=== PATIENT | female | born 1950 | race Caucasian/White ===

== ENCOUNTER → 2017-06-21 | Outpatient (CLI) | payer MEDICARE ==
--- NOTE | 2017-06-21 12:52 | WWHP ---
[facility] - HISTORY AND PHYSICAL DATE OF DICTATION: June 21, 2017 Please have a copy sent to Dr. Karan Godinez. CHIEF COMPLAINT: The patient is here for her routine gynecologic exam and mammogram. HPI: This is a 67-year-old G4, P3 with an LMP of 2001. The patient is without gynecologic complaints and denies any postmenopausal bleeding. 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 MEDICATIONS: None. ALLERGIES: No known drug allergies. PAST SURGICAL HISTORY: Tonsillectomy in 1954, colonoscopy in 05/2017. She was told to repeat this after 3 years. 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 SOCIAL HISTORY: She denies tobacco, alcohol, and drug use. She has been since 1972 and this is her second marriage. She is considered disabled. FAMILY HISTORY: Unchanged from the 12/03/2015 H and P. REVIEW OF SYSTEMS: She has lost 7 pounds over the last year. She denies respiratory cardiac or GI problems. She denies maltreatment or falling. : She denies any significant problems with urinary leakage. PHYSICAL EXAM: Blood pressure 124/84, height 5 feet 7 inches, weight 196 pounds. BMI 31. Temperature 97.9, pulse 62. This is a well-developed, well-nourished, white female, who is alert and oriented x3, in no acute distress. HEENT is within normal limits. NECK: Supple without mass or thyromegaly. Chest and LUNGS: Clear to auscultation. HEART: Regular rate and rhythm. Breasts are without mass or discharge. Axillary exam is negative for adenopathy. Back negative for CVA tenderness. ABDOMEN: Soft, nontender, without palpable masses. Pelvic exam: External genitalia reveals mild atrophy without lesions. Cervix and vagina reveals mild atrophy without lesions. There is no evidence of prolapse. The uterus is mid position, nongravid size and nontender. There are no palpable adnexal masses or tenderness. Rectovaginal exam is negative for mass or tenderness. Fecal occult blood testing was not performed since she just had her colonoscopy done last month. EXTREMITIES: Nontender. IMPRESSION: 67-year-old menopausal female with normal gynecologic exam. PLAN: 1. Pap smear was deferred since she had a normal one less than 2 years ago. 2. Self breast examination was discussed. 3. Screening mammogram will be done today. 4. Osteoporosis prevention was discussed. I have recommended bone density screening. She would like to do this next year. 5. She did not receive a flu shot. I have recommended that she get flu shots during the flu season. 6. She will return in 1 year end. TACO / SAEEDN: [id number] /
--- NOTE | 2017-06-22 09:21 | MM ---
Reason for exam: screening (asymptomatic). Last mammogram was performed 1 year and 6 months ago. History: Family history of breast cancer in maternal cousin at age 30. Physical Findings: A clinical breast exam by your physician is recommended on an annual basis and results should be correlated with mammographic findings. MG 3D Screening Mammo W/Cad Bilateral CC and MLO view(s) were taken. Prior study comparison: December 15, 2015, bilateral MG 3d screening mammo w/cad. March 22, 2007, bilateral screening mammogram w/CAD. There are scattered fibroglandular densities. No significant changes when compared with prior studies. ASSESSMENT: Benign, BI-RAD 2 RECOMMENDATION: Routine screening mammogram of both breasts in 1 year.
== END | disposition home or self-care (01) ==
LOC: WWCWWP 10:41
PROVIDERS: ATTEND Obstetrics & Gynecology
DX: Z12.31 Encounter for screening mammogram for malignant neoplasm of breast (principal)
CPT/HCPCS: 77063; 77067

== ENCOUNTER → 2018-10-18 | Outpatient (CLI) | payer MEDICARE ==
[2018-10-18 11:49] VITALS: BP 146/91; PULSE 54; RESP 16; TEMP 97.9; BMI 29.6
--- NOTE | 2018-10-18 12:33 | P.HPOB ---
History of Present Illness H&P Date: 10/18/18 Chief Complaint: The patient is here for her routine gynecologic exam and ma mmogram. This is a 68-year-old with an LMP of 2001. The patient is without gynecologic complaints and denies any postmenopausal bleeding. Review of Systems She has lost about 7 pounds over the last year. She denies respiratory, cardiac and G.I. problems. She denies maltreatment or problems with falling. : she denies any significant problems with urinary leakage, but occasionally has to get to the bathroom right away. Past Medical History Past Medical History: Hyperlipidemia Additional Past Medical History / Comment(s): Psoriatic arthritis, granuloma annulares (skin condition), and Behcet's disease. 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 History of Any Multi-Drug Resistant Organisms: None Reported Past Surgical History: Tonsillectomy Additional Past Surgical History / Comment(s): Colonoscopy in May 2017 (next after 3 yrs). Past Psychological History: No Psychological Hx Reported Smoking Status: Never smoker Past Alcohol Use History: None Reported Past Drug Use History: None Reported Additional History: She has been since 1972 and this was her 2nd marriage. She is considered disabled. She is infrequently sexually active following her 's diagnosis of prostate cancer. - Past Family History Father Family Medical History: Diabetes Mellitus Mother Family Medical History: Cancer, Myocardial Infarction ([place]) Additional Family Medical History / Comment(s): Unknown type of cancer. 2 cousins had breast cancer. Medications and Allergies Home Medications Medication Instructions Recorded Confirmed Type No Known Home Medications 10/18/18 10/18/18 History Allergies Allergy/AdvReac Type Severity Reaction Status Date / Time No Known Allergies Allergy Unverified 10/18/18 11:49 Exam Vital Signs Temp Pulse Resp BP Pulse Ox 10/18/18 11:41 97.9 F 54 L 16 146/91 98 Intake and Output 10/17/18 10/18/18 10/18/18 22:59 06:59 14:59 Other: Weight 85.729 kg Height 5'7", weight 189 pounds, BMI 29.6. This is a well-developed well-nourished white female who is alert and oriented times 3 in no acute distress. HEENT: Within normal limits. NECK: Supple without mass or thyromegaly. CHEST AND LUNGS: Clear to auscultation. HEART: Regular rate and rhythm. BREASTS: Are without mass or discharge. AXILLARY EXAM: Negative for adenopathy. BACK: Negative for CVA tenderness. ABDOMEN: Soft, nontender, without palpable masses. PELVIC EXAM: Normal external genitalia with mild to moderate atrophy. Cervix and vagina appear normal with mild to moderate atrophy. There is no unusual discharge. There is no evidence of prolapse. The uterus is midposition, nongravid size and nontender. There are no palpable adnexal masses or tenderness. RECTAL EXAM: rectovaginal exam is negative for mass or tenderness and is negative for occult blood. EXTREMITIES: Nontender. IMPRESSION: 1. 68 year old menopausal female with normal gynecologic exam. PLAN: 1. Pap smear was performed. 2. Self breast awareness was discussed with the patient. 3. Screening mammogram will be done today. 4. Osteoporosis prevention was discussed. I have stressed the importance of adequate calcium, vitamin D and regular exercise. Recommended amounts of calcium and vitamin D were also discussed. I have recommended bone density testing. She is declining this at this time. She states she will consider doing this next year. 5. She does not get flu shots. I have recommended that she consider getting a flu shot in the fall. 6.She was advised to return in one year for her annual well woman exam.
--- NOTE | 2018-10-19 09:44 | MM ---
Reason for exam: screening (asymptomatic). Last mammogram was performed 1 year and 4 months ago. History: Family history of breast cancer in maternal cousin at age 30. Physical Findings: A clinical breast exam by your physician is recommended on an annual basis and results should be correlated with mammographic findings. MG 3D Screening Mammo W/Cad Bilateral CC and MLO view(s) were taken. Prior study comparison: June 21, 2017, bilateral MG 3d screening mammo w/cad. December 15, 2015, bilateral MG 3d screening mammo w/cad. There are scattered fibroglandular densities. No significant changes when compared with prior studies. ASSESSMENT: Benign, BI-RAD 2 RECOMMENDATION: Routine screening mammogram of both breasts in 1 year.
== END | disposition home or self-care (01) ==
LOC: WWCWWP 11:03
PROVIDERS: ATTEND Obstetrics & Gynecology
DX: Z12.31 Encounter for screening mammogram for malignant neoplasm of breast (principal)
CPT/HCPCS: 77063; 77067

== ENCOUNTER → 2020-07-22 | Outpatient (CLI) | payer MEDICARE ==
[2020-07-22 11:33] VITALS: BP 142/82; PULSE 61; RESP 18; TEMP 98.3
--- NOTE | 2020-07-22 12:01 | P.HPOB ---
History of Present Illness H&P Date: 07/22/20 Chief Complaint: The patient is here for her routine gynecologic exam and ma mmogram. This is a 70-year-old 013 with an LMP of 2001. The patient is without gynecologic complaints. Review of Systems She has gained about 11 pounds over the past 2 years. She denies respiratory, cardiac and G.I. problems. She denies maltreatment. She has fallen on ice without any significant injury. : she denies any significant problems with urinary leakage. Past Medical History Past Medical History: Hyperlipidemia Additional Past Medical History / Comment(s): Psoriatic arthritis, granuloma annulares (skin condition), and Behcet's disease. 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 History of Any Multi-Drug Resistant Organisms: None Reported Past Surgical History: Tonsillectomy Additional Past Surgical History / Comment(s): Colonoscopy in May 2017 (next after 3 yrs). Past Psychological History: No Psychological Hx Reported Smoking Status: Never smoker Past Alcohol Use History: None Reported Past Drug Use History: None Reported Additional History: She has been since 1972 and this is her second marriage. She is considered disabled. She is not sexually active. - Past Family History Father Family Medical History: Diabetes Mellitus Mother Family Medical History: Cancer, Myocardial Infarction ([place]) Additional Family Medical History / Comment(s): Unknown type of cancer. 2 cousins had breast cancer. Medications and Allergies Home Medications Medication Instructions Recorded Confirmed Type No Known Home Medications 10/18/18 07/22/20 History Allergies Allergy/AdvReac Type Severity Reaction Status Date / Time No Known Allergies Allergy Unverified 07/22/20 11:21 Exam Vital Signs Temp Pulse Resp BP Pulse Ox 07/22/20 11:21 98.3 F 61 18 142/82 98 Intake and Output 07/21/20 07/22/20 07/22/20 22:59 06:59 14:59 Other: Weight 90.718 kg Height 5 feet 7 inches, weight 200 pounds, BMI 31.3. This is a well-developed well-nourished white female who is alert and oriented times 3 in no acute distress. HEENT: Within normal limits. NECK: Supple without mass or thyromegaly. CHEST AND LUNGS: Clear to auscultation. HEART: Regular rate and rhythm. BREASTS: Are without mass or discharge. AXILLARY EXAM: Negative for adenopathy. BACK: Negative for CVA tenderness. ABDOMEN: Soft, nontender, without palpable masses. PELVIC EXAM: Normal external genitalia with mild atrophy. Cervix and vagina appear normal with mild to moderate atrophy. There is no unusual discharge. There is no evidence of prolapse. The uterus is midposition, nongravid size and nontender. There are no palpable adnexal masses or tenderness. RECTAL EXAM: Rectovaginal exam is negative for mass or tenderness and is negative for occult blood. EXTREMITIES: Nontender. IMPRESSION: 1. 70-year-old menopausal female with normal gynecologic exam. PLAN: 1. Pap smear was deferred since she had a normal one on 10/18/2018. We will repeat Pap smear testing at her next well woman examination. If that one is negative, we will have 3 consecutive negative Pap smears and we will consider discontinuing them. 2. Self breast awareness was discussed with the patient. 3. Screening mammogram will be done today. 4. Osteoporosis prevention was discussed. I have stressed the importance of adequate calcium, vitamin D and regular exercise. Recommended amounts of calcium and vitamin D were also discussed. Bone density testing was recommended and this was declined by the patient. She will let me know if she changes her mind about this. 5. I believe she is coming due for a screening colonoscopy. She will follow-up with her PCP to confirm this and to see if they can help her to arrange for t his. 6. She is scheduled to get her Covid vaccination this week. 7. The patient was advised to return in 1-2 years for her well woman examination.
--- NOTE | 2020-07-23 10:21 | MM ---
Reason for exam: screening (asymptomatic). Last mammogram was performed 1 year and 9 months ago. History: Patient is postmenopausal. Family history of breast cancer in maternal cousin at age 30. Physical Findings: A clinical breast exam by your physician is recommended on an annual basis and results should be correlated with mammographic findings. MG 3D Screening Mammo W/Cad Bilateral CC and MLO view(s) were taken. Prior study comparison: October 18, 2018, bilateral MG 3d screening mammo w/cad. June 21, 2017, bilateral MG 3d screening mammo w/cad. There are scattered fibroglandular densities. There is no discrete abnormality. ASSESSMENT: Negative, BI-RAD 1 RECOMMENDATION: Routine screening mammogram of both breasts in 1 year.
== END | disposition home or self-care (01) ==
LOC: WWCWWP 11:01
PROVIDERS: ATTEND Obstetrics & Gynecology
DX: Z12.31 Encounter for screening mammogram for malignant neoplasm of breast (principal)
CPT/HCPCS: 77063; 77067

== ENCOUNTER → 2021-02-26 | Outpatient (CLI) | payer MEDICARE ==
--- NOTE | 2021-02-26 14:13 | XR ---
Left foot HISTORY: Left foot pain 3 views of the left foot Degenerative changes present at the first metatarsophalangeal joint. Bone mineralization, joint space s and alignment are otherwise maintained. There is no fracture or dislocation. There is a plantar alex caneal spur. Spurring is present at the intertarsal joints. IMPRESSION: Osteoarthritis.
--- NOTE | 2021-02-26 14:16 | XR ---
Cervical spine HISTORY: Neck pain 5 views of the cervical spine, no comparisons There is multilevel spondylosis. Anterolisthesis grade 1 C3-4, C4-5, there is a kyphosis centered at C5-6. Loss of disc height is present C5-6 and C6-7, C7-T1. Cervical vertebral bodies show preserved h eight and bone mineralization. Prevertebral soft tissues are normal. Facet arthropathy changes are pr esent. C4-5 shows some foraminal encroachment bilaterally, there is some foraminal encroachment at C6 -7 and C7-T1 bilaterally, C5-6 on the left. Suspect underlying thoracic scoliotic curvature present. IMPRESSION: Degenerative disc disease, facet arthropathy, multilevel foraminal encroachment.
--- NOTE | 2021-02-26 14:24 | XR ---
Left knee HISTORY: Left knee pain 4 views of left knee Marginal spurring is present tricompartmentally, joint space loss is present at the patellofemoral omar int, medial compartment. Alignment is maintained. Bone mineralization is reduced. There is no fractur e or dislocation. Suprapatellar increased attenuation may reflect a small joint effusion. Subchondral lucency may be present at the posterior patella. IMPRESSION: Osteoarthritis.
== END | disposition home or self-care (01) ==
LOC: RADXRMAIN 12:20
PROVIDERS: ATTEND Internal Medicine
DX: M19.072 Primary osteoarthritis, left ankle and foot (principal); M50.30 Other cervical disc degeneration, unspecified cervical region; M47.812 Spondylosis without myelopathy or radiculopathy, cervical region; M17.12 Unilateral primary osteoarthritis, left knee
CPT/HCPCS: 72050

== ENCOUNTER 2021-03-05 09:46 | Inpatient (IN) | payer MEDICARE ==
[2021-03-05] MEDS ORDERED: PANTOPRAZOLE 40 MG/10 ML VIAL IVP STA (10:24)
--- NOTE | 2021-03-05 10:49 | ED ---
Abdominal Pain HPI - General Chief Complaint: Abdominal Pain Stated Complaint: Nausea/Vomiting/Abd Pain Source: patient Mode of arrival: ambulatory Limitations: no limitations - History of Present Illness Initial Comments: 70-year-old female with past medical history of hyperlipidemia, psoriatic arthritis presents to the emergency department with supportive epigastric abdominal pain. States it's been present for the past 3 days and makes her feel nauseated with vomiting. She has been unable to hold down any food. He states her symptoms were more mild today she was able to eat half piece of toast. She denies hematemesis. No history of EGD. Reports a history of peptic ulcer disease however this was when she was much younger. She also reports to chronic belching no changes in her bowel or bladder habits currently. No vaginal bleeding or discharge. Was taking Tums at home for her symptoms and states that it was not improving. She was supposed to have an appointment with Dr. Nayak today. Presented to his office and when she told him that he didn't feel well he sent her into the emergency room for further evaluation. No history of abdominal surgeries. Patient does not drink alcohol. Denies chest pain or shortness of breath. No other alleviating, precipitating or modifying factors - Related Data Home Medications Medication Instructions Recorded Confirmed Ascorbic Acid [Vitamin C] 500 mg PO DAILY 03/05/21 03/05/21 Cholecalciferol [Vitamin D3 (25 25 mcg PO DAILY 03/05/21 03/05/21 Mcg = 1000 Iu)] Multivitamins, Thera [Multivitamin 1 tab PO DAILY 03/05/21 03/05/21 (formulary)] Allergies Allergy/AdvReac Type Severity Reaction Status Date / Time No Known Allergies Allergy Verified 03/05/21 11:43 Review of Systems ROS Statement: Those systems with pertinent positive or pertinent negative responses have been documented in the HPI. ROS Other: All systems not noted in ROS Statement are negative. Past Medical History Past Medical History: Hyperlipidemia Additional Past Medical History / Comment(s): Psoriatic arthritis, granuloma annulares (skin condition), and Behcet's disease. 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 History of Any Multi-Drug Resistant Organisms: None Reported Past Surgical History: Tonsillectomy Additional Past Surgical History / Comment(s): Colonoscopy in May 2017 (next after 3 yrs). Past Psychological History: No Psychological Hx Reported Smoking Status: Never smoker Past Alcohol Use History: None Reported Past Drug Use History: None Reported - Past Family History Father Family Medical History: Diabetes Mellitus Mother Family Medical History: Cancer, Myocardial Infarction ([place]) Additional Family Medical History / Comment(s): Unknown type of cancer. 2 cousins had breast cancer. General Exam Limitations: no limitations Course Vital Signs 03/05/21 03/05/21 09:55 12:33 Temperature 98.2 F Pulse Rate 98 90 Respiratory 18 16 Rate Blood Pressure 161/111 139/85 O2 Sat by Pulse 98 96 Oximetry - Reevaluation(s) Reevaluation #1: 03/05/21 12:[address] Ozuna about the patient Medical Decision Making - Medical Decision Making Upon arrival patient was placed into room 4. She is hooked up to continuous pulse ox and cardiac monitoring. 12-lead EKG was performed which does demonstrate some ST depression. Laboratory studies are conducted. Does demonstrate a white count of 13.5. Lactic acid 2.2. Troponin 0.588. Urinalysis demonstrates occasional bacteria. Covid negative. Abdominal ultrasound demonstrates possible hepatic steatosis or hepatocellular disease. Cholelithiasis, thickened wall. Patient is initiated on heparin. Called and spoke with Dr. Zafar who agreed to admit the patient. I spoke with Dr. Ozuna who presents emergency department and evaluates the patient. Echo was ordered. We will consult Dr. Kwong for possible cholecystitis. Patient remained in st able condition awaiting a bed - Lab Data Result diagrams: 03/05/21 10:34 03/05/21 10:34 Lab Results 03/05/21 03/05/21 03/05/21 Range/Units 10:34 10:34 10:34 WBC 13.5 H (3.8-10.6) k/uL RBC 5.86 H (3.80-5.40) m/uL Hgb 17.4 H (11.4-16.0) gm/dL Hct 53.2 H (34.0-46.0) % MCV 90.8 (80.0-100.0) fL MCH 29.7 (25.0-35.0) pg MCHC 32.7 (31.0-37.0) g/dL RDW 12.9 (11.5-15.5) % Plt Count 431 (150-450) k/uL MPV 7.2 Neutrophils % 78 % Lymphocytes % 13 % Monocytes % 7 % Eosinophils % 1 % Basophils % 0 % Neutrophils # 10.5 H (1.3-7.7) k/uL Lymphocytes # 1.7 (1.0-4.8) k/uL Monocytes # 1.0 (0-1.0) k/uL Eosinophils # 0.1 (0-0.7) k/uL Basophils # 0.0 (0-0.2) k/uL Sodium 136 L (137-145) mmol/L Potassium 4.3 (3.5-5.1) mmol/L Chloride 98 (98-107) mmol/L Carbon Dioxide 25 (22-30) mmol/L Anion Gap 13 mmol/L BUN 14 (7-17) mg/dL Creatinine 0.85 (0.52-1.04) mg/dL Est GFR (CKD-EPI)AfAm 81 (>60 ml/min/1.73 sqM) Est GFR (CKD-EPI)NonAf 70 (>60 ml/min/1.73 sqM) Glucose 121 H (74-99) mg/dL Lactic Ac Sepsis Rflx Plasma Lactic Acid Bryon (0.7-2.0) mmol/L Calcium 10.6 H (8.4-10.2) mg/dL Total Bilirubin 1.5 H (0.2-1.3) mg/dL AST 35 (14-36) U/L ALT 21 (4-34) U/L Alkaline Phosphatase 87 (38-126) U/L Troponin I (0.000-0.034) ng/mL Total Protein 7.9 (6.3-8.2) g/dL Albumin 4.6 (3.5-5.0) g/dL Lipase 67 (23-300) U/L Urine Color Light Yellow Urine Appearance Clear (Clear) Urine pH 5.5 (5.0-8.0) Ur Specific Angelica 1.004 (1.001-1.035) Urine Protein Trace H (Negative) Urine Glucose (UA) Negative (Negative) Urine Ketones Negative (Negative) Urine Blood Trace H (Negative) Urine Nitrite Negative (Negative) Urine Bilirubin Negative (Negative) Urine Urobilinogen <2.0 (<2.0) mg/dL Ur Leukocyte Esterase Negative (Negative) Urine RBC <1 (0-5) /hpf Urine WBC <1 (0-5) /hpf Ur Squamous Epith Cells 1 (0-4) /hpf Urine Bacteria Occasional H (None) /hpf Coronavirus (PCR) (Not Detectd) 03/05/21 03/05/21 03/05/21 Range/Units 10:34 10:34 11:41 WBC (3.8-10.6) k/uL RBC (3.80-5.40) m/uL Hgb (11.4-16.0) gm/dL Hct (34.0-46.0) % MCV (80.0-100.0) fL MCH (25.0-35.0) pg MCHC (31.0-37.0) g/dL RDW (11.5-15.5) % Plt Count (150-450) k/uL MPV Neutrophils % % Lymphocytes % % Monocytes % % Eosinophils % % Basophils % % Neutrophils # (1.3-7.7) k/uL Lymphocytes # (1.0-4.8) k/uL Monocytes # (0-1.0) k/uL Eosinophils # (0-0.7) k/uL Basophils # (0-0.2) k/uL Sodium (137-145) mmol/L Potassium (3.5-5.1) mmol/L Chloride (98-107) mmol/L Carbon Dioxide (22-30) mmol/L Anion Gap mmol/L BUN (7-17) mg/dL Creatinine (0.52-1.04) mg/dL Est GFR (CKD-EPI)AfAm (>60 ml/min/1.73 sqM) Est GFR (CKD-EPI)NonAf (>60 ml/min/1.73 sqM) Glucose (74-99) mg/dL Lactic Ac Sepsis Rflx Y Plasma Lactic Acid Bryon 2.2 H* (0.7-2.0) mmol/L Calcium (8.4-10.2) mg/dL Total Bilirubin (0.2-1.3) mg/dL AST (14-36) U/L ALT (4-34) U/L Alkaline Phosphatase (38-126) U/L Troponin I 0.588 H* (0.000-0.034) ng/mL Total Protein (6.3-8.2) g/dL Albumin (3.5-5.0) g/dL Lipase (23-300) U/L Urine Color Urine Appearance (Clear) Urine pH (5.0-8.0) Ur Specific Angelica (1.001-1.035) Urine Protein (Negative) Urine Glucose (UA) (Negative) Urine Ketones (Negative) Urine Blood (Negative) Urine Nitrite (Negative) Urine Bilirubin (Negative) Urine Urobilinogen (<2.0) mg/dL Ur Leukocyte Esterase (Negative) Urine RBC (0-5) /hpf Urine WBC (0-5) /hpf Ur Squamous Epith Cells (0-4) /hpf Urine Bacteria (None) /hpf Coronavirus (PCR) (Not Detectd) 03/05/21 Range/Units 12:17 WBC (3.8-10.6) k/uL RBC (3.80-5.40) m/uL Hgb (11.4-16.0) gm/dL Hct (34.0-46.0) % MCV (80.0-100.0) fL MCH (25.0-35.0) pg MCHC (31.0-37.0) g/dL RDW (11.5-15.5) % Plt Count (150-450) k/uL MPV Neutrophils % % Lymphocytes % % Monocytes % % Eosinophils % % Basophils % % Neutrophils # (1.3-7.7) k/uL Lymphocytes # (1.0-4.8) k/uL Monocytes # (0-1.0) k/uL Eosinophils # (0-0.7) k/uL Basophils # (0-0.2) k/uL Sodium (137-145) mmol/L Potassium (3.5-5.1) mmol/L Chloride (98-107) mmol/L Carbon Dioxide (22-30) mmol/L Anion Gap mmol/L BUN (7-17) mg/dL Creatinine (0.52-1.04) mg/dL Est GFR (CKD-EPI)AfAm (>60 ml/min/1.73 sqM) Est GFR (CKD-EPI)NonAf (>60 ml/min/1.73 sqM) Glucose (74-99) mg/dL Lactic Ac Sepsis Rflx Plasma Lactic Acid Bryon (0.7-2.0) mmol/L Calcium (8.4-10.2) mg/dL Total Bilirubin (0.2-1.3) mg/dL AST (14-36) U/L ALT (4-34) U/L Alkaline Phosphatase (38-126) U/L Troponin I (0.000-0.034) ng/mL Total Protein (6.3-8.2) g/dL Albumin (3.5-5.0) g/dL Lipase (23-300) U/L Urine Color Urine Appearance (Clear) Urine pH (5.0-8.0) Ur Specific Angelica (1.001-1.035) Urine Protein (Negative) Urine Glucose (UA) (Negative) Urine Ketones (Negative) Urine Blood (Negative) Urine Nitrite (Negative) Urine Bilirubin (Negative) Urine Urobilinogen (<2.0) mg/dL Ur Leukocyte Esterase (Negative) Urine RBC (0-5) /hpf Urine WBC (0-5) /hpf Ur Squamous Epith Cells (0-4) /hpf Urine Bacteria (None) /hpf Coronavirus (PCR) Not Detected (Not Detectd) - EKG Data EKG Comments: EKG demonstrates a sinus rhythm with a ventricular rate of 84. MD interval 146. QRS 80. QTC of 430. Deep inverted T-wave in aVR. ST depression in V2 through V6 as well as 2 and aVF Disposition Clinical Impression: Epigastric pain, NSTEMI (non-ST elevated myocardial infarction), Cholecystitis, Cholelithiasis Disposition: ADMITTED IP TO THIS [facility] Condition: Serious Is patient prescribed a controlled substance at d/c from ED?: No Decision to Admit Reason: Admit from EC Decision Date: 03/05/21 Decision Time: 12:36
[2021-03-05 10:50] LABS: Basophils % (A) 0 %; Eosinophils # (A) 0.1 k/uL (0-0.7); Eosinophils % (A) 1 %; HCT 53.2 % (34.0-46.0); HGB 17.4 gm/dL (11.4-16.0); Lymphocytes # (A) 1.7 k/uL (1.0-4.8); Lymphocytes % (A) 13 %; MCH 29.7 pg (25.0-35.0); MCHC 32.7 g/dL (31.0-37.0); MCV 90.8 fL (80.0-100.0); Mean Platelet Volume 7.2; Monocytes % (A) 7 %; Neutrophils # (A) 10.5 k/uL (1.3-7.7); Neutrophils % (A) 78 %; Platelet Count 431 k/uL (150-450); RBC 5.86 m/uL (3.80-5.40); RDW 12.9 % (11.5-15.5); WBC 13.5 k/uL (3.8-10.6)
[2021-03-05 11:14] LABS: Appearance,Urine Clear (Clear); Bacteria,Urine Occasional /hpf; Bilirubin,Urine Negative (Negative); Blood,Urine Trace (Negative); Color,Urine Light Yellow; Glucose,Urine (UA) Negative (Negative); Ketones,Urine Negative (Negative); Leukocyte Esterase,Urine Negative (Negative); Nitrite,Urine Negative (Negative); PH, Urine 5.5 (5.0-8.0); Protein,Urine Trace (Negative); RBC,Urine <1 /hpf (0-5); Specific Gravity,Urine 1.004 (1.001-1.035); Squamous Epithelial Cell,Urine 1 /hpf (0-4); Urobilinogen,Urine <2.0 mg/dL (<2.0); WBC,Urine <1 /hpf (0-5)
[2021-03-05 11:17] LABS: Albumin 4.6 g/dL (3.5-5.0); Calcium 10.6 mg/dL (8.4-10.2); Potassium 4.3 mmol/L (3.5-5.1); Total Bilirubin 1.5 mg/dL (0.2-1.3); Total Protein 7.9 g/dL (6.3-8.2)
--- NOTE | 2021-03-05 11:31 | US ---
EXAMINATION TYPE: US abdomen limited DATE OF EXAM: 03/05/2021 COMPARISON: NONE CLINICAL HISTORY: epigastric, right upper quadrant pain. EXAM MEASUREMENTS: Liver Length: 16.6 cm Gallbladder Wall: 0.5 cm CBD: 0.7 cm Right Kidney: 11.0 x 3.9 x 3.9cm Pancreas: wnl Liver: Increased attenuation the echotexture is coarse Gallbladder: cholelithiasis, thickened wall gallbladder is contracted Evidence for sonographic Parmar's sign: No CBD: Within normal limits for patient's age Right Kidney: no masses seen and there is no hydronephrosis, cortical measured differentiation is julia ntained IMPRESSION: Correlate for possible hepatic steatosis or hepatocellular disease. Cholelithiasis, contr acted gallbladder with thickened wall, correlate for cholecystitis
[2021-03-05] MEDS ORDERED: HEPARIN SODIUM 1,000 UN/ML (10ML VL) IV PRN (12:00)
[2021-03-05] MEDS ORDERED: metroNIDAZOLE-NS PMX 500 MG in SALINE 1 100ML.BAG IVPB STA (12:00)
[2021-03-05] MEDS ORDERED: CEFEPIME 2 GM in SODIUM CHLORIDE 0.9% 100 ML IVPB STA (12:00)
[2021-03-05] MEDS ORDERED: HEPARIN SODIUM 1,000 UN/ML (10ML VL) IV ONE (12:00)
[2021-03-05] MEDS ORDERED: HEPARIN SOD,PORK IN 0.45% NACL 25,000 UNIT in 0.45% NACL 1 250ML.BAG IV SCH (12:00)
[2021-03-05] MEDS ORDERED: NALOXONE 0.4 MG/ML 1 ML VIAL IV PRN (12:37)
--- NOTE | 2021-03-05 13:14 | P.CRDCN ---
History of Present Illness History of present illness: HISTORY OF PRESENTING ILLNESS This is a pleasant 70-year-old female with past medical history of psoriatic arthritis, rheumatic fever when she was an . 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 We have been asked to see in consultation for elevated troponin. Patient is seen and examined in the emergency department. Patient has been having upper abdominal pain for 3 days. She's been having associated nausea and vomiting, unable to hold down any food. Decreased appetite. She denies eating anything to upset her stomach. Her pain is non-radiating, non-exertional. She denies any chest pain, shortness of breath, palpitations, lightheadedness, dizziness, syncope or near syncope. She denies having this abdominal pain before. She denies any symptoms of orthopnea or PND. She denies any history of [place], hypertension, stroke, diabetes, hyperlipidemia. She denies fever, chills, cough at home. She denies tobacco or alcohol use. Denies family history of coronary artery disease. DIAGNOSTICS EKG reveals sinus rhythm, heart rate 84, no significant ST-T wave abnormalities to suggest ischemia Telemetry tracings indicate sinus mechanism heart rate 90slow 100s. Abdominal ultrasound revealed cholelithiasis, thickened wall gallbladder is contracted, correlate for possible hepatic steatosis with hepatocellular disease. Laboratory reviewed, WBC 13.5, hemoglobin 17.4, Plavix for 31, sodium 136, potassium 4.3, BUN 14, serum creatinine 0.8, lactate 2.2, troponin 0.58, lipase within normal limits., LFTs within normal limits. Current home medications include a multivitamin, vitamin C and vitamin D 3. REVIEW OF SYSTEMS At the time of my exam: CONSTITUTIONAL: Denies fever or chills. CARDIOVASCULAR: Denies chest pain, shortness of breath, orthopnea, PND or palpitations. RESPIRATORY: Denies cough. GASTROINTESTINAL: +nausea, vomiting, abdominal pain Denies diarrhea, consti pation MUSCULOSKELETAL: Denies myalgias. NEUROLOGIC: Denies numbness, tingling, headache or weakness. ENDOCRINE: Denies fatigue, weight change, polydipsia or polyurina. GENITOURINARY: Denies burning, hematuria or urgency with micturation. HEMATOLOGIC: Denies history of anemia or bleeding. PHYSICAL EXAMINATION Blood pressure 139/85, heart rate 90, afebrile oxygen saturation 96% on room air CONSTITUTIONAL: No apparent distress. HEENT: Head is normocephalic. Pupils are equal, round. Sclerae anicteric. Mucous membranes of the mouth are moist. No JVD. No carotid bruit. CHEST EXAMINATION: Lungs are clear to auscultation. No chest wall tenderness is noted on palpation or with deep breathing. HEART EXAMINATION: Regular rate and rhythm. S1, S2 heard. No murmurs, gallops or rub. ABDOMEN: Soft, nontender. Positive bowel sounds. EXTREMITIES: 2+ peripheral pulses, no lower extremity edema and no calf tenderness. SKIN: warm dry. NEUROLOGIC EXAMINATION: Patient is awake, alert and oriented x3. ASSESSMENT Abdominal pain Elevated troponin, likely related to infection, unlikely acute coronary syndrome. Patient without chest pain, EKG with no evidence of acute ischemia Cholelithiasis seen on abdominal ultrasound Leukocytosis Lactic acidosis PLAN Obtain 2D echocardiogram and doppler study to assess cardiac structure and function. Trend troponin Continue IV heparin drip Start metoprolol tartrate 25mg BID Check Lipid panel Surgery consulted Further recommendations based on clinical course Nurse Practitioner note has been reviewed, I agree with a documented findings and plan of care. Patient was seen and examined. Past Medical History Past Medical History: Hyperlipidemia Additional Past Medical History / Comment(s): Psoriatic arthritis, granuloma annulares (skin condition), and Behcet's disease. 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 History of Any Multi-Drug Resistant Organisms: None Reported Past Surgical History: Tonsillectomy Additional Past Surgical History / Comment(s): Colonoscopy in May 2017 (next after 3 yrs). Past Psychological History: No Psychological Hx Reported Smoking Status: Never smoker Past Alcohol Use History: None Reported Past Drug Use History: None Reported - Past Family History Father Family Medical History: Diabetes Mellitus Mother Family Medical History: Cancer, Myocardial Infarction ([place]) Additional Family Medical History / Comment(s): Unknown type of cancer. 2 cousins had breast cancer. Medications and Allergies Home Medications Medication Instructions Recorded Confirmed Type Ascorbic Acid [Vitamin C] 500 mg PO DAILY 03/05/21 03/05/21 History Cholecalciferol [Vitamin D3 (25 25 mcg PO DAILY 03/05/21 03/05/21 History Mcg = 1000 Iu)] Multivitamins, Thera [Multivitamin 1 tab PO DAILY 03/05/21 03/05/21 History (formulary)] Allergies Allergy/AdvReac Type Severity Reaction Status Date / Time No Known Allergies Allergy Verified 03/05/21 11:43 Physical Exam Vitals: Vital Signs Temp Pulse Resp BP Pulse Ox 03/05/21 12:33 90 16 139/85 96 03/05/21 09:55 98.2 F 98 18 161/111 98 Intake and Output 03/04/21 03/05/21 03/05/21 22:59 06:59 14:59 Other: Weight 83.915 kg Results 03/05/21 10:34 03/05/21 10:34 Cardiac Enzymes 03/05/21 03/05/21 Range/Units 10:34 10:34 AST 35 (14-36) U/L Troponin I 0.588 H* (0.000-0.034) ng/mL CBC 03/05/21 Range/Units 10:34 WBC 13.5 H (3.8-10.6) k/uL RBC 5.86 H (3.80-5.40) m/uL Hgb 17.4 H (11.4-16.0) gm/dL Hct 53.2 H (34.0-46.0) % Plt Count 431 (150-450) k/uL Comprehensive Metabolic Panel 03/05/21 Range/Units 10:34 Sodium 136 L (137-145) mmol/L Potassium 4.3 (3.5-5.1) mmol/L Chloride 98 (98-107) mmol/L Carbon Dioxide 25 (22-30) mmol/L BUN 14 (7-17) mg/dL Creatinine 0.85 (0.52-1.04) mg/dL Glucose 121 H (74-99) mg/dL Calcium 10.6 H (8.4-10.2) mg/dL AST 35 (14-36) U/L ALT 21 (4-34) U/L Alkaline Phosphatase 87 (38-126) U/L Total Protein 7.9 (6.3-8.2) g/dL Albumin 4.6 (3.5-5.0) g/dL Current Medications Generic Name Dose Route Start Last Admin Trade Name Freq PRN Reason Stop Dose Admin Heparin Sodium (Porcine) 0 unit 03/05/21 12:00 Heparin Sodium 1,000 Un/Ml (10ml Vl) IV PER PROTOCOL PRN Low PTT Protocol Heparin Sodium/Sodium Chloride 250 mls @ 10.07 mls/hr 03/05/21 12:00 03/05/21 12:25 25,000 unit/ Sodium Chloride IV 12 units/kg/hr .Q24H KELSEY 10.07 mls/hr Administration Protocol 12 UNITS/KG/HR Metoprolol Tartrate 25 mg 03/05/21 13:15 Metoprolol Tartrate 25 Mg Tab PO BID KELSEY Naloxone HCl 0.2 mg 03/05/21 12:37 Naloxone 0.4 Mg/Ml 1 Ml Vial IV Q2M PRN Opioid Reversal Intake and Output 03/04/21 03/05/21 03/05/21 22:59 06:59 14:59 Other: Weight 83.915 kg Patient Weight 03/06/21 06:59 Weight 83.915 kg 03/05/21 10:34 03/05/21 10:34
[2021-03-05] MEDS ORDERED: MAG HYDROX/AL HYDROX/SIMETH 30 ML CUP PO PRN (14:08)
[2021-03-05] MEDS ORDERED: ONDANSETRON 4 MG/2 ML VIAL IVP PRN (14:08)
[2021-03-05] MEDS ORDERED: ACETAMINOPHEN TAB 325 MG TAB PO PRN (14:08)
[2021-03-05] MEDS ORDERED: MELATONIN 3 MG TABLET PO PRN (14:08)
[2021-03-05] MEDS ORDERED: ALPRAZolam 0.25 MG TAB PO PRN (14:08)
[2021-03-05] MEDS ORDERED: CALCIUM CARBONATE 500 MG CHEWABLE PO PRN (14:08)
[2021-03-05] MEDS: METOPROLOL TARTRATE 25 MG TAB PO SCH ×2 (14:26→20:48)
--- NOTE | 2021-03-05 14:54 | P.GSCN ---
History of Present Illness Consult date: 03/05/21 History of present illness: CHIEF COMPLAINT: Abdominal pain HISTORY OF PRESENT ILLNESS: This is a 70-year-old female who presents to the emergency room with a three-day complaint of right upper quadrant abdominal pain with nausea and vomiting. Patient reports decrease in appetite. She denies any fever, chills or sweats. She denies any chest pain or shortness of breath. She is being evaluated by cardiology due to elevated troponin. Patient did have evidence of ptosis. Ultrasound reveals cholelithiasis and contracted gallbladder with thickened wall and to correlate for cholecystitis. Patient is currently on IV antibiotics. Patient reports possible history of peptic ulcer disease in her teenage years. Treated with antacids. Never had EGD completed. Patient denies any prior cardiac history. PAST MEDICAL HISTORY: Hyperlipidemia, psoriatic arthritis PAST SURGICAL HISTORY: Tonsillectomy, colonoscopy MEDICATIONS: See list. ALLERGIES: See list. SOCIAL HISTORY: No illicit drug use. Prior history of smoking over 20 years ago REVIEW OF SYSTEMS: CONSTITUTIONAL: Denies fever or chills. HEENT: Denies blurred vision, vision changes, or eye pain. Denies hemoptysis CARDIOVASCULAR: Denies chest pain or pressure. RESPIRATORY: No shortness of breath. GASTROINTESTINAL: See HPI for pertinent findings HEMATOLOGIC: Denies bleeding disorders. GENITOURINARY: Denies any blood in urine or increased urinary frequency. SKIN: Denies pruitis. Denies rash. PHYSICAL EXAM: VITAL SIGNS: Reviewed GENERAL: Well-developed in no acute distress. HEENT: No sclera icterus. Extraocular movements grossly intact. Moist buccal mucosa. Head is atraumatic, normocephalic. No nasal drainage. ABDOMEN: Soft. Nondistended. Right upper quadrant tenderness with palpation NEUROLOGIC: Alert and oriented. Cranial nerves II through XII grossly intact. LABORATORY DATA: WBC is 13.5 hemoglobin 17.4 plt 431 Sodium 136 potassium is 4.3 BUN is 14 Cr 0.85 Lactic acid 2.2 Total bilirubin 1.5 AST 35 ALT 21 lipase 67 Troponin 0.588 Urinalysis negative for infection COVID-19 not detected EKG normal sinus rhythm with sinus arrhythmia, nonspecific ST changes IMAGING: Abdominal ultrasound correlate for possible hepatic steatosis or hepatocellular disease. Cholelithiasis, contracted gallbladder with thickened wall, correlate for cholecystitis ASSESSMENT: 1. Acute cholecystitis with cholelithiasis PLAN: -Patient scheduled for laparoscopic cholecystectomy today with Dr. 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 Per cardiology the echo preliminary r eport was read as normal. And they felt that the elevated troponin is likely due to patient's infection and there is no significant EKG changes. Cardiology has cleared patient to proceed with surgery. Thank you for this consultation Physician Levi Maker note has been reviewed by physician. Signing provider agrees with the documented findings, assessment, and plan of care. Past Medical History Past Medical History: Hyperlipidemia Additional Past Medical History / Comment(s): Psoriatic arthritis, granuloma annulares (skin condition), and Behcet's disease. 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 History of Any Multi-Drug Resistant Organisms: None Reported Past Surgical History: Tonsillectomy Additional Past Surgical History / Comment(s): Colonoscopy in May 2017 (next after 3 yrs). Past Psychological History: No Psychological Hx Reported Smoking Status: Never smoker Past Alcohol Use History: None Reported Past Drug Use History: None Reported - Past Family History Father Family Medical History: Diabetes Mellitus Mother Family Medical History: Cancer, Myocardial Infarction ([place]) Additional Family Medical History / Comment(s): Unknown type of cancer. 2 cousins had breast cancer. Medications and Allergies Home Medications Medication Instructions Recorded Confirmed Type Ascorbic Acid [Vitamin C] 500 mg PO DAILY 03/05/21 03/05/21 History Cholecalciferol [Vitamin D3 (25 25 mcg PO DAILY 03/05/21 03/05/21 History Mcg = 1000 Iu)] Multivitamins, Thera [Multivitamin 1 tab PO DAILY 03/05/21 03/05/21 History (formulary)] Allergies Allergy/AdvReac Type Severity Reaction Status Date / Time No Known Allergies Allergy Verified 03/05/21 11:43 Surgical - Exam Vital Signs Temp Pulse Resp BP Pulse Ox 98.2 F 98 18 161/111 98 03/05/21 09:55 03/05/21 09:55 03/05/21 09:55 03/05/21 09:55 03/05/21 09:55 Results - Labs 03/05/21 10:34 03/05/21 10:34 Abnormal Lab Results - Last 24 Hours (Table) 03/05/21 03/05/21 03/05/21 Range/Units 10:34 10:34 10:34 WBC 13.5 H (3.8-10.6) k/uL RBC 5.86 H (3.80-5.40) m/uL Hgb 17.4 H (11.4-16.0) gm/dL Hct 53.2 H (34.0-46.0) % Neutrophils # 10.5 H (1.3-7.7) k/uL Sodium 136 L (137-145) mmol/L Glucose 121 H (74-99) mg/dL Plasma Lactic Acid Bryon (0.7-2.0) mmol/L Calcium 10.6 H (8.4-10.2) mg/dL Total Bilirubin 1.5 H (0.2-1.3) mg/dL Troponin I (0.000-0.034) ng/mL Urine Protein Trace H (Negative) Urine Blood Trace H (Negative) Urine Bacteria Occasional H (None) /hpf 03/05/21 03/05/21 Range/Units 10:34 10:34 WBC (3.8-10.6) k/uL RBC (3.80-5.40) m/uL Hgb (11.4-16.0) gm/dL Hct (34.0-46.0) % Neutrophils # (1.3-7.7) k/uL Sodium (137-145) mmol/L Glucose (74-99) mg/dL Plasma Lactic Acid Bryon 2.2 H* (0.7-2.0) mmol/L Calcium (8.4-10.2) mg/dL Total Bilirubin (0.2-1.3) mg/dL Troponin I 0.588 H* (0.000-0.034) ng/mL Urine Protein (Negative) Urine Blood (Negative) Urine Bacteria (None) /hpf Diabetes panel 03/05/21 Range/Units 10:34 Sodium 136 L (137-145) mmol/L Potassium 4.3 (3.5-5.1) mmol/L Chloride 98 (98-107) mmol/L Carbon Dioxide 25 (22-30) mmol/L BUN 14 (7-17) mg/dL Creatinine 0.85 (0.52-1.04) mg/dL Glucose 121 H (74-99) mg/dL Calcium 10.6 H (8.4-10.2) mg/dL AST 35 (14-36) U/L ALT 21 (4-34) U/L Alkaline Phosphatase 87 (38-126) U/L Total Protein 7.9 (6.3-8.2) g/dL Albumin 4.6 (3.5-5.0) g/dL Calcium panel 03/05/21 Range/Units 10:34 Calcium 10.6 H (8.4-10.2) mg/dL Albumin 4.6 (3.5-5.0) g/dL Pituitary panel 03/05/21 Range/Units 10:34 Sodium 136 L (137-145) mmol/L Potassium 4.3 (3.5-5.1) mmol/L Chloride 98 (98-107) mmol/L Carbon Dioxide 25 (22-30) mmol/L BUN 14 (7-17) mg/dL Creatinine 0.85 (0.52-1.04) mg/dL Glucose 121 H (74-99) mg/dL Calcium 10.6 H (8.4-10.2) mg/dL Adrenal panel 03/05/21 Range/Units 10:34 Sodium 136 L (137-145) mmol/L Potassium 4.3 (3.5-5.1) mmol/L Chloride 98 (98-107) mmol/L Carbon Dioxide 25 (22-30) mmol/L BUN 14 (7-17) mg/dL Creatinine 0.85 (0.52-1.04) mg/dL Glucose 121 H (74-99) mg/dL Calcium 10.6 H (8.4-10.2) mg/dL Total Bilirubin 1.5 H (0.2-1.3) mg/dL AST 35 (14-36) U/L ALT 21 (4-34) U/L Alkaline Phosphatase 87 (38-126) U/L Total Protein 7.9 (6.3-8.2) g/dL Albumin 4.6 (3.5-5.0) g/dL
--- NOTE | 2021-03-05 17:01 | ECHOF ---
Referral Reason:nstemi MEASUREMENTS -------- HEIGHT: 170.2 cm WEIGHT: 83.9 kg BP: IVSd: 1.6 cm (0.6 - 1.1) LVIDd: 3.6 cm (3.9 - 5.3) LVPWd: 1.6 cm (0.6 - 1.1) IVSs: 2.3 cm LVIDs: 1.7 cm LVPWs: 2.0 cm Ao Diam: 3.7 cm (2.0 - 3.7) AV Cusp: 1.9 cm (1.5 - 2.6) LA Diam: 3.0 cm (2.7 - 3.8) MV EXCURSION: 13.189 mm (> 18.000) MV EF SLOPE: 73 mm/s (70 - 150) EPSS: 0.4 cm MV E Rolly: 0.38 m/s MV DecT: 184 ms MV A Rolly: 0.64 m/s MV E/A Ratio: 0.60 RAP: 5.00 mmHg RVSP: 16.46 mmHg FINDINGS -------- This was a technically good study. The left ventricular size is normal. There is moderate concentric left ventricular hypertrophy. O verall left ventricular systolic function is normal with, an EF between 55 - 60 %. The right ventricle is normal in size. The left atrial size is normal. The right atrial size is normal. The aortic valve is trileaflet and appears structurally normal. The mitral valve is normal. Mild mitral regurgitation is present. The tricuspid valve appears structurally normal. Mild tricuspid regurgitation present. Right vent ricular systolic pressure is normal at < 35 mmHg. There is no pulmonic regurgitation present. The aortic root size is normal. Normal inferior vena cava with normal inspiratory collapse consistent with estimated right atrial pre ssure of 5 mmHg. There is no pericardial effusion. CONCLUSIONS -------- 1. The left ventricular size is normal. 2. There is moderate concentric left ventricular hypertrophy. 3. Overall left ventricular systolic function is normal with, an EF between 55 - 60 %. 4. Mild mitral regurgitation is present. 5. Mild tricuspid regurgitation present. 6. There is no pericardial effusion. BRANCH SERVICE ASSOCIATE: Ruma Latham RDCS
[2021-03-05] MEDS: PIPERACILLIN-TAZOBACTAM 3.375 GM in SODIUM CHLORIDE 0.9% 100 ML IVPB SCH (18:37)
[2021-03-05] MEDS: LACTATED RINGERS 1,000 ML IV SCH (18:37)
--- NOTE | 2021-03-05 19:54 | P.HPIM ---
History of Present Illness H&P Date: 03/05/21 Chief Complaint: Epigastric pain This is a pleasant 70-year-old patient who is relatively in good health. Has had a positive history of hyperlipidemia but never renewed a prescription. Arthritis in several joints. Rheumatic fever as a younger person. 0.1 days patient's been having increasing epigastric pain going across. Also been having significant vomiting. Not able to keep anything down. Denies any fever and chills. Denies any precordial pain. No shortness of breath no dizziness or lightheadedness. Tired rundown. Patient's is at bedside. I otherwise rather active. Can comfortably walk one-2 blocks. Without any cardiac symptoms. Denies history of any chest pain otherwise. Review of systems: GEN.: Tired EYES: None HEENT: None NECK: None RESPIRATORY: None CARDIOVASCULAR: None GASTROINTESTINAL: As above GENITOURINARY: None MUSCULOSKELETAL: Multiple joint pains LYMPHATICS: None HEMATOLOGICAL: None PSYCHIATRY: None NEUROLOGICAL: None Past medical history to include: Hyperlipidemia, osteoarthritis, rheumatic fever Social history: . Denies any history of alcohol or smoking. Family history: Diabetes, 2 cousins had breast cancer Physical examination: VITAL SIGNS: 98.2, 90, 16, 139/85, 96% room air GENERAL: BMI 29, [place] event awake, slightly anxious. EYES: Pupils equal. Conjunctiva normal. HEENT: External appearance of nose and ears normal, oral cavity grossly normal. NECK: JVD not raised; masses not palpable. HEART: First and second heart sounds are normal; no edema. LUNGS: Respiratory rate normal; clear to auscultation MUSCULAR skeletal: Evidence of OA. ABDOMEN: Soft, some epigastric tenderness, no guarding rigidity, liver spleen not palpable, no masses palpable. PSYCH: Alert and oriented x3; mood and affect normal. NEUROLOGICAL: Cranial nerves grossly intact; no facial asymmetry, power and sensation grossly intact. LYMPHATICS: No lymph nodes palpable in the axilla and neck INVESTIGATIONS, reviewed in the clinical context: White count 13.5 hemoglobin 7.4 platelets 431 potassium 4.3 BUN 14 creatinine 0.85 Lactic acid 2.2 calcium 10.6 Troponin I 0.588, 0.4 UA trace protein, trace blood. Coronavirus [PCR]: Not detected EKG tracing personally reviewed by me-shows ST segment depression in lead 1 and aVL V2 through V6. 2-D echocardiogram: Moderate concentric LVH. EF 55-60%. No wall motion abnormality Ultrasound abdomen: Gallstones. Thickened wall gallbladder is contracted. CBD within normal limits. Liver: Increased attenuation the echotexture discourse Assessment and plan: -Patient presented to heart rates of epigastric pain. Going across. Nausea vomiting. No white count. No fever no chills. Clinical evidence of gallstones. Questionable associated acute cholecystitis. We'll start patient empirically on IV Zosyn. Surgery consulted. Patient be kept on ice chips. IV fluids. -Positive troponins, with EKG changes. With changes of ischemia in inferolateral leads. Patient otherwise asymptomatic at baseline and could excise tolerance. Difficult to comment on this point at this is acute coronary syndrome. Currently consulted. No 2-D echocardiogram does not have any wall motion abnormalities. -Hyperlipidemia, patient is not taking medications for some time. We'll check lipid profile -Primary osteoarthritis multiple joints bilaterally. Use Tylenol when necessary -IV heparin monitoring, follow PTT -Hepatic steatosis -Lactic acidosis, type II from fluid loss/dehydration. No sepsis. IV fluids -Hypercalcemia from dehydration set volume loss from vomiting. IV fluids Patient is on telemetry. IV Zosyn. Lipid panel. IV heparin. Telemetry. Started on Lopressor. Sensory and oncology consulted. Care was discussed with the patient and at the bedside. Past Medical History Past Medical History: Hyperlipidemia Additional Past Medical History / Comment(s): Psoriatic arthritis, granuloma annulares (skin condition), and Behcet's disease. 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 History of Any Multi-Drug Resistant Organisms: None Reported Past Surgical History: Tonsillectomy Additional Past Surgical History / Comment(s): Colonoscopy in May 2017 (next after 3 yrs). Past Psychological History: No Psychological Hx Reported Smoking Status: Never smoker Past Alcohol Use History: None Reported Past Drug Use History: None Reported - Past Family History Father Family Medical History: Diabetes Mellitus Mother Family Medical History: Cancer, Myocardial Infarction ([place]) Additional Family Medical History / Comment(s): Unknown type of cancer. 2 cousins had breast cancer. Medications and Allergies Home Medications Medication Instructions Recorded Confirmed Type Ascorbic Acid [Vitamin C] 500 mg PO DAILY 03/05/21 03/05/21 History Cholecalciferol [Vitamin D3 (25 25 mcg PO DAILY 03/05/21 03/05/21 History Mcg = 1000 Iu)] Multivitamins, Thera [Multivitamin 1 tab PO DAILY 03/05/21 03/05/21 History (formulary)] Allergies Allergy/AdvReac Type Severity Reaction Status Date / Time No Known Allergies Allergy Verified 03/05/21 11:43 Physical Exam Vitals: Vital Signs Temp Pulse Resp BP Pulse Ox 03/05/21 12:33 90 16 139/85 96 03/05/21 09:55 98.2 F 98 18 161/111 98 Intake and Output 03/05/21 03/05/21 03/05/21 06:59 14:59 22:59 Output Total 200 Balance -200 Output: Urine 200 Other: Weight 83.915 kg Results CBC & Chem 7: 03/05/21 10:34 03/05/21 10:34 Labs: Abnormal Lab Results - Last 24 Hours (Table) 03/05/21 03/05/21 03/05/21 Range/Units 10:34 10:34 10:34 WBC 13.5 H (3.8-10.6) k/uL RBC 5.86 H (3.80-5.40) m/uL Hgb 17.4 H (11.4-16.0) gm/dL Hct 53.2 H (34.0-46.0) % Neutrophils # 10.5 H (1.3-7.7) k/uL APTT (22.0-30.0) sec Sodium 136 L (137-145) mmol/L Glucose 121 H (74-99) mg/dL Plasma Lactic Acid Bryon (0.7-2.0) mmol/L Calcium 10.6 H (8.4-10.2) mg/dL Total Bilirubin 1.5 H (0.2-1.3) mg/dL Troponin I (0.000-0.034) ng/mL Urine Protein Trace H (Negative) Urine Blood Trace H (Negative) Urine Bacteria Occasional H (None) /hpf 03/05/21 03/05/21 03/05/21 Range/Units 10:34 10:34 14:55 WBC (3.8-10.6) k/uL RBC (3.80-5.40) m/uL Hgb (11.4-16.0) gm/dL Hct (34.0-46.0) % Neutrophils # (1.3-7.7) k/uL APTT (22.0-30.0) sec Sodium (137-145) mmol/L Glucose (74-99) mg/dL Plasma Lactic Acid Bryon 2.2 H* (0.7-2.0) mmol/L Calcium (8.4-10.2) mg/dL Total Bilirubin (0.2-1.3) mg/dL Troponin I 0.588 H* 0.479 H* (0.000-0.034) ng/mL Urine Protein (Negative) Urine Blood (Negative) Urine Bacteria (None) /hpf 03/05/21 Range/Units 18:45 WBC (3.8-10.6) k/uL RBC (3.80-5.40) m/uL Hgb (11.4-16.0) gm/dL Hct (34.0-46.0) % Neutrophils # (1.3-7.7) k/uL APTT 31.8 H (22.0-30.0) sec Sodium (137-145) mmol/L Glucose (74-99) mg/dL Plasma Lactic Acid Bryon (0.7-2.0) mmol/L Calcium (8.4-10.2) mg/dL Total Bilirubin (0.2-1.3) mg/dL Troponin I (0.000-0.034) ng/mL Urine Protein (Negative) Urine Blood (Negative) Urine Bacteria (None) /hpf
[2021-03-06] MEDS: PIPERACILLIN-TAZOBACTAM 3.375 GM in SODIUM CHLORIDE 0.9% 100 ML IVPB SCH ×2 (00:16→08:24)
[2021-03-06 01:58] LABS: Chol/HDL Ratio 3.98 Ratio; HDL Cholesterol 74.3 mg/dL (40.00-60.00); LDL Cholesterol,Calculated 189.3 mg/dL (0.0-131.0); VLDL Calculation 32.4 mg/dL (5.00-40.00)
[2021-03-06 04:39] LABS: Basophils # (A) 0.1 k/uL (0-0.2); Basophils % (A) 1 %; Eosinophils # (A) 0.2 k/uL (0-0.7); Eosinophils % (A) 2 %; HCT 45.6 % (34.0-46.0); HGB 14.6 gm/dL (11.4-16.0); Lymphocytes # (A) 1.7 k/uL (1.0-4.8); Lymphocytes % (A) 18 %; MCH 29.2 pg (25.0-35.0); MCV 91.1 fL (80.0-100.0); Mean Platelet Volume 7.3; Monocytes # (A) 0.7 k/uL (0-1.0); Monocytes % (A) 8 %; Neutrophils # (A) 6.6 k/uL (1.3-7.7); Neutrophils % (A) 70 %; Platelet Count 299 k/uL (150-450); RBC 5.01 m/uL (3.80-5.40); RDW 12.9 % (11.5-15.5); WBC 9.5 k/uL (3.8-10.6)
[2021-03-06 05:01] LABS: Calcium 9.2 mg/dL (8.4-10.2); Potassium 3.9 mmol/L (3.5-5.1)
[2021-03-06] MEDS: LACTATED RINGERS 1,000 ML IV SCH ×2 (07:25→14:21)
[2021-03-06] MEDS: ATORVASTATIN 40 MG TAB PO SCH (09:15)
[2021-03-06] MEDS: ASPIRIN 81 MG PO SCH (09:15)
[2021-03-06] MEDS: METOPROLOL TARTRATE 25 MG TAB PO SCH ×2 (09:15→20:09)
--- NOTE | 2021-03-06 11:43 | P.PN ---
Subjective Progress Note Date: 03/06/21 CHIEF COMPLAINT: Abdominal pain HISTORY OF PRESENT ILLNESS: This is a 70-year-old female who has presented with right upper quadrant pain with nausea and vomiting. She reports her pain is approved. Her ultrasound had shown cholelithiasis with contracted gallbladder and thickened wall. Patient placed on antibiotics for an acute cholecystitis. She did have elevated troponins. She's being followed by cardiology. Case discussed with cardiology. Patient is tolerating a low-fat diet. Afebrile. White count has normalized at 9.5 sodium 135 creatinine 1.09 troponin trending downwards. Patient seen and examined with Dr. samayoa PHYSICAL EXAM: VITAL SIGNS: Reviewed. GENERAL: Well-developed in no acute distress. HEENT: No sclera icterus. Extraocular movements grossly intact. Moist buccal mucosa. Head is atraumatic, normocephalic. ABDOMEN: Soft. Nondistended. Nontender. NEUROLOGIC: Alert and oriented. Cranial nerves II through XII grossly intact. ASSESSMENT: 1. Acute cholecystitis 2. Symptomatic cholelithiasis PLAN: -Patient can be discharged from surgical standpoint -Recommend outpatient cholecystectomy -Recommend antibiotics at discharge, Rx for Augmentin prescribed -Recommend low-fat diet -Patient follow up with Dr. Samayoa in 1 week Physician Sap Trainer note has been reviewed by physician. Signing provider agrees with the documented findings, assessment, and plan of care. Objective - Vital Signs Vital signs: Vital Signs Temp 98.2 F 03/06/21 08:21 Pulse 58 L 03/06/21 11:36 Resp 16 03/06/21 11:36 BP 107/70 03/06/21 11:36 Pulse Ox 97 03/06/21 11:36 Intake & Output 03/05/21 03/06/21 03/06/21 18:59 06:59 18:59 Intake Total 670.746 180 Output Total 200 Balance -200 670.746 180 Weight 83.915 kg 83.915 kg Intake: Intake, IV Titration 185.746 Amount Heparin Sod,Pork in 0.45% 185.746 NaCl 25,000 unit In 0.45 % NaCl 1 250ml.bag @ 12 UNITS/KG/HR 10.07 mls/hr IV .Q24H [facility] Rx#: [id number] Oral 485 180 Output: Urine 200 Other: Voiding Method Toilet # Voids 2 - Labs CBC & Chem 7: 03/06/21 04:19 03/06/21 04:19 Labs: Abnormal Lab Results - Last 24 Hours (Table) 03/05/21 03/05/21 03/05/21 Range/Units 10:34 10:34 10:34 APTT (22.0-30.0) sec Sodium (137-145) mmol/L BUN (7-17) mg/dL Creatinine (0.52-1.04) mg/dL Glucose (74-99) mg/dL Plasma Lactic Acid Bryon 2.2 H* (0.7-2.0) mmol/L Troponin I 0.588 H* (0.000-0.034) ng/mL Triglycerides 162.00 H (0.00-149.00) mg/dL Cholesterol 296.00 H (0.00-200.00) mg/dL LDL Cholesterol, Calc 189.3 H (0.0-131.0) mg/dL HDL Cholesterol 74.30 H (40.00-60.00) mg/dL 03/05/21 03/05/21 03/05/21 Range/Units 14:55 18:45 18:45 APTT 31.8 H (22.0-30.0) sec Sodium (137-145) mmol/L BUN (7-17) mg/dL Creatinine (0.52-1.04) mg/dL Glucose (74-99) mg/dL Plasma Lactic Acid Bryon (0.7-2.0) mmol/L Troponin I 0.479 H* 0.364 H* (0.000-0.034) ng/mL Triglycerides (0.00-149.00) mg/dL Cholesterol (0.00-200.00) mg/dL LDL Cholesterol, Calc (0.0-131.0) mg/dL HDL Cholesterol (40.00-60.00) mg/dL 03/06/21 03/06/21 Range/Units 04:19 04:19 APTT 59.7 H (22.0-30.0) sec Sodium 135 L (137-145) mmol/L BUN 20 H (7-17) mg/dL Creatinine 1.09 H (0.52-1.04) mg/dL Glucose 107 H (74-99) mg/dL Plasma Lactic Acid Bryon (0.7-2.0) mmol/L Troponin I (0.000-0.034) ng/mL Triglycerides (0.00-149.00) mg/dL Cholesterol (0.00-200.00) mg/dL LDL Cholesterol, Calc (0.0-131.0) mg/dL HDL Cholesterol (40.00-60.00) mg/dL
--- NOTE | 2021-03-06 12:39 | PN ---
PROGRESS NOTE Mrs. Albert is a 70-year-old female who presented with upper abdominal discomfort as well as belching and nausea. She had mild troponin elevation. She had no chest discomfort. Her breathing has been stable. She denies any dizziness or palpitations. She denies any nausea this morning. Her abdominal pain is better. She underwent an echocardiogram that revealed preserved left ventricular size and systolic function. She has mild mitral and tricuspid regurgitation. She continues on the IV heparin and metoprolol 25 mg twice a day. PHYSICAL EXAMINATION: Blood pressure is running in the 100s with a heart rate in the 60s. LUNGS: Clear. HEART: Regular rate and rhythm. S1, S2. No S3. No rub. ABDOMEN: Soft, nontender. Positive bowel sounds. EXTREMITIES: No edema. LAB DATA: BUN and creatinine of 21 and 0.09. Her troponin is down to 0.364. Her white blood cells 9.5. Hemoglobin 14.6. IMPRESSION: 1. Abdominal discomfort with possible cholecystitis. 2. Mild troponin elevation with no clear symptoms of anginal symptoms or EKG changes; could be related to the abdominal process. 3. Hyperlipidemia. RECOMMENDATIONS: From the cardiac standpoint, I will stop the IV heparin. Continue the rest of her medical regimen. Increase her level of activity. Will await the input of the surgical team regarding surgical intervention if needed. If no surgical intervention is needed, then we will proceed with further cardiac workup. That can be done as an outpatient. TACO / YOKO: [id number] /
[2021-03-06 16:44] LABS: HCT 44.4 % (34.0-46.0); HGB 14.5 gm/dL (11.4-16.0); MCH 30.3 pg (25.0-35.0); MCHC 32.6 g/dL (31.0-37.0); Mean Platelet Volume 7.1; Platelet Count 289 k/uL (150-450); RBC 4.78 m/uL (3.80-5.40); RDW 12.8 % (11.5-15.5); WBC 8.2 k/uL (3.8-10.6)
[2021-03-06 16:52] LABS: Albumin 3.4 g/dL (3.5-5.0); Calcium 9.1 mg/dL (8.4-10.2); Potassium 3.9 mmol/L (3.5-5.1); Total Bilirubin 0.6 mg/dL (0.2-1.3)
--- NOTE | 2021-03-06 17:30 | P.PN ---
Progress Note - Text Progress Note Date: 03/06/21 Chief Complaint: Epigastric pain This is a pleasant 70-year-old patient who is relatively in good health. Has had a positive history of hyperlipidemia but never renewed a prescription. Arthritis in several joints. Rheumatic fever as a younger person. 0.1 days patient's been having increasing epigastric pain going across. Also been having significant vomiting. Not able to keep anything down. Denies any fever and chills. Denies any precordial pain. No shortness of breath no dizziness or lightheadedness. Tired rundown. Patient's is at bedside. I otherwise rather active. Can comfortably walk one-2 blocks. Without any cardiac symptoms. Denies history of any chest pain otherwise. March 06: Patient feeling better. No abdominal pain. On IV Zosyn. Plan is for patient to have surgery next week. Will have the patient ambulate today. If remains good possibly home tomorrow. No further inpatient workup per cardiology. Review of systems: Was done for constitutional, cardiovascular, GI, pulmonary. relevant finding as above Active Medications Acetaminophen (Acetaminophen Tab 325 Mg Tab) 650 mg PO Q6HR PRN PRN Reason: Mild Pain or Fever > 100.5 Al Hydroxide/Mg Hydroxide (Mag Hydrox/Al Hydrox/Simeth 30 Ml Cup) 15 ml PO Q6HR PRN PRN Reason: Indigestion Alprazolam (Alprazolam 0.25 Mg Tab) 0.25 mg PO Q6HR PRN PRN Reason: Anxiety Amoxicillin/Clavulanate Potassium (Amoxic-Pot Clav 875-125mg 1 Each Tab) 1 each PO Q12HR [facility] Aspirin (Aspirin 81 Mg) 81 mg PO DAILY [facility] Last Admin: 03/06/21 09:15 Dose: 81 mg Documented by: Atorvastatin Calcium (Atorvastatin 40 Mg Tab) 40 mg PO DAILY [facility] Last Admin: 03/06/21 09:15 Dose: 40 mg Documented by: Calcium Carbonate/Glycine (Calcium Carbonate 500 Mg Chewable) 1,000 mg PO Q4HR PRN PRN Reason: Dyspepsia Heparin Sodium (Porcine) (Heparin Sodium 1,000 Un/Ml (10ml Vl)) 0 unit IV PER PROTOCOL PRN; Protocol PRN Reason: Low PTT Last Admin: 03/05/21 21:48 Dose: 4,000 unit Documented by: Melatonin (Melatonin 3 Mg Tablet) 3 mg PO HS PRN PRN Reason: Insomnia Metoprolol Tartrate (Metoprolol Tartrate 25 Mg Tab) 25 mg PO BID KELSEY Last Admin: 03/06/21 09:15 Dose: 25 mg Documented by: Naloxone HCl (Naloxone 0.4 Mg/Ml 1 Ml Vial) 0.2 mg IV Q2M PRN PRN Reason: Opioid Reversal Ondansetron HCl (Ondansetron 4 Mg/2 Ml Vial) 4 mg IVP Q8HR PRN PRN Reason: Nausea And Vomiting Past medical history to include: Hyperlipidemia, osteoarthritis, rheumatic fever Social history: . Denies any history of alcohol or smoking. Family history: Diabetes, 2 cousins had breast cancer Physical examination: VITAL SIGNS: 98.2, 68, 16, 99/70, 96% room air GENERAL: Sitting up, awake, comfortable EYES: Pupils equal. Conjunctiva normal. HEENT: External appearance of nose and ears normal, oral cavity grossly normal. NECK: JVD not raised; masses not palpable. HEART: First and second heart sounds are normal; no edema. LUNGS: Respiratory rate normal; clear to auscultation MUSCULAR skeletal: Evidence of OA. ABDOMEN: Soft, no tenderness, no guarding rigidity, liver spleen not palpable, no masses palpable. PSYCH: Alert and oriented x3; mood and affect normal. INVESTIGATIONS, reviewed in the clinical context: March 06: WBC 8.2 hemoglobin 14.5 platelets 29 potassium 3.9 creatinine 1.01 LDL 189 White count 13.5 hemoglobin 7.4 platelets 431 potassium 4.3 BUN 14 creatinine 0.85 Lactic acid 2.2 calcium 10.6 Troponin I 0.588, 0.4 UA trace protein, trace blood. Coronavirus [PCR]: Not detected EKG tracing personally reviewed by me-shows ST segment depression in lead 1 and aVL V2 through V6. 2-D echocardiogram: Moderate concentric LVH. EF 55-60%. No wall motion abnormality Ultrasound abdomen: Gallstones. Thickened wall gallbladder is contracted. CBD within normal limits. Liver: Increased attenuation the echotexture discourse Assessment and plan: -Choledocholithiasis symptomatic. Questionable associated acute cholecystitis. IV Zosyn-changed to Augmentin. Diet advanced per surgery to low-fat. Outpatient surgery. -Positive troponins, with EKG changes. With changes of ischemia in inferolateral leads. Patient otherwise asymptomatic at baseline and good excise tolerance. 2-D echocardiogram does not have any wall motion abnormalities. For further out patient workup by cardiology. -Hyperlipidemia, Start Lipitor 40 mg daily -Primary osteoarthritis multiple joints bilaterally. Use Tylenol when necessary -IV heparin monitoring,-discontinued -Hepatic steatosis -Lactic acidosis, type II from fluid loss/dehydration. No sepsis. IV fluids -Hypercalcemia from dehydration set volume loss from vomiting. IV fluids Discussed with Dr. Kwong from general surgery. Patient follow-up in the office on Tuesday. Also discussed with patient at length. No Rx symptoms. Have the patient ambulate today. If no symptoms at home tomorrow. Lipitor added. IV Zosyn changed to Augmentin. Total time spent today about 40 minutes to don't 25 minutes of discussion.
[2021-03-06] MEDS: AMOXIC-POT CLAV 875-125MG 1 EACH TAB PO SCH (20:09)
[2021-03-07] MEDS: METOPROLOL TARTRATE 25 MG TAB PO SCH (08:44)
[2021-03-07] MEDS: AMOXIC-POT CLAV 875-125MG 1 EACH TAB PO SCH (08:44)
[2021-03-07] MEDS: ATORVASTATIN 40 MG TAB PO SCH (08:44)
[2021-03-07] MEDS: ASPIRIN 81 MG PO SCH (08:44)
[2021-03-07 12:07] VITALS: BP 108/71; PULSE 70; RESP 18; TEMP 98.1
--- NOTE | 2021-03-07 12:09 | P.PN ---
Subjective Progress Note Date: 03/07/21 CHIEF COMPLAINT: Cholecystitis HISTORY OF PRESENT ILLNESS: The patient is a 70-year-old female admitted for right upper quadrant abdominal pain. She is being treated conservatively with antibiotics. She did have an acute event with elevated troponins. She is tolerating low-fat diet. She denies any abdominal pain. ROS: No reports of nausea and vomiting. No bowel movements. No fevers or chil ls. No new chest pain. No productive sputum PHYSICAL EXAM: VITAL SIGNS: Reviewed CONSTITUTIONAL: Well developed and in no acute distress. EYES: Conjuctivae without sclera icterus. Extraocular movements grossly intact. HEAD, EARS, NOSE, THROAT: Moist buccal mucosa. Head is atraumatic, normoce phalic. Hears conversational speech. No nasal drainage. NECK: No gross thyroidomegaly. No jugular venous distention. RESPIRATORY: Non-labored respirations and equal bilateral excursions. CARDIOVASCULAR: Palpable 2+ radial pulses. Regular rate. Regular rhythm. ABDOMEN: Nontender. MUSCULOSKELETAL: No gross deformity of the lower extremities noted. No clubbing. No cyanosis. SKIN: Good skin turgor. Well perfused. NEUROLOGIC: Cranial nerves II through XII grossly intact. No focal or latera lizing signs. PSYCH: Appropriate affect. Alert and oriented to person, place and time. CLINICAL LABS: White blood cell count normal at 8.2. LFTs normal. Troponins elevation 0.588 down to 0.364, elevated ECHO: Reviewed with ejection fraction 55-60%. No wall motion abnormality identified. EKG: Normal sinus rhythm IMAGES: Ultrasound of the gallbladder independent review demonstrated contracted gallbladder with gallstones. This is my independent interpretation ASSESSMENT: 1. Acute cholecystitis with gallstones. 2. Elevated troponins PLAN: 1. Continue antibiotics upon discharge. 2. Cholecystectomy as outpatient Objective - Vital Signs Vital signs: Vital Signs Temp 98.2 F 03/06/21 22:50 Pulse 68 03/07/21 04:15 Resp 17 03/07/21 04:15 BP 101/68 03/07/21 04:15 Pulse Ox 99 03/07/21 04:15 Intake & Output 03/06/21 03/07/21 03/07/21 18:59 06:59 18:59 Intake Total 600 118 Balance 600 118 Weight 84 kg Intake: Oral 600 118 Other: Voiding Method Toilet # Voids 2 1 - Labs CBC & Chem 7: 03/06/21 16:20 03/06/21 16:20 Labs: Abnormal Lab Results - Last 24 Hours (Table) 03/06/21 Range/Units 16:20 Sodium 134 L (137-145) mmol/L BUN 23 H (7-17) mg/dL Glucose 104 H (74-99) mg/dL Total Protein 6.0 L (6.3-8.2) g/dL Albumin 3.4 L (3.5-5.0) g/dL Assessment and Plan (1) Troponin level elevated Current Visit: Yes Status: Acute Code(s): R77.8 - OTHER SPECIFIED ABNORMALITIES OF PLASMA PROTEINS SNOMED Code(s): 913106785 (2) Cholecystitis Current Visit: Yes Status: Acute Code(s): K81.9 - CHOLECYSTITIS, UNSPECIFIED SNOMED Code(s): 81277329 (3) Cholelithiasis Current Visit: Yes Status: Acute Code(s): K80.20 - CALCULUS OF GALLBLADDER W/O CHOLECYSTITIS W/O OBSTRUCTION SNOMED Code(s): 048392294 (4) Epigastric pain Current Visit: Yes Status: Acute Code(s): R10.13 - EPIGASTRIC PAIN SNOMED Code(s): 29212381
--- NOTE | 2021-03-07 16:00 | P.DS ---
Providers Date of admission: 03/05/21 12:45 Expected date of discharge: 03/07/21 Attending physician: Kofi Zafar Consults: 03/05/21 12:44 Consult Physician Urgent Consulting Provider: Jakub Kwong Consult Reason/Comments: acute cholelithiasis/cholecystitis Do you want consulting provider notified?: Yes Consult Physician Urgent Consulting Provider: [facility] Consult Reason/Comments: nstemi Do you want consulting provider notified?: Already Contacted Primary care physician: Anshul Nayak [facility] Course: Chief Complaint: Epigastric pain This is a pleasant 70-year-old patient who is relatively in good health. Follows with Dr. Anshul Nayak.. Has had a positive history of hyperlipidemia but never renewed a prescription. Arthritis in several joints. Rheumatic fever as a younger person. 0.1 days patient's been having increasing epigastric pain going across. Also been having significant vomiting. Not able to keep anything down. Denies any fever and chills. Denies any precordial pain. No shortness of breath no dizziness or lightheadedness. Tired rundown. Patient's is at bedside. I otherwise rather active. Can comfortably walk one-2 blocks. Without any cardiac symptoms. Denies history of any chest pain otherwise. Patient was initially put on IV heparin. IV Zosyn. Patient had no further chest pain. Ambulated with no cardiac symptoms. Dr. Kwong will see the patient as outpatient. Patient seen by cardiology and cleared. Further workup as outpatient. Today: Doing well. Up and about. Care was discussed with the patient and . Questions answered. Patient follow-up with cardiology and Dr. Kwong as outpatient. Consultation: Dr. Kwong from surgery Dr. Ozuna from cardiology Past medical history to include: Hyperlipidemia, osteoarthritis, rheumatic fever Social history: . Denies any history of alcohol or smoking. Family history: Diabetes, 2 cousins had breast cancer Physical examination: VITAL SIGNS: 98.1, 70, 18, 108/71, 97% room air GENERAL: Sitting up, awake, comfortable EYES: Pupils equal. Conjunctiva normal. HEENT: External appearance of nose and ears normal, oral cavity grossly normal. NECK: JVD not raised; masses not palpable. HEART: First and second heart sounds are normal; no edema. LUNGS: Respiratory rate normal; clear to auscultation MUSCULAR skeletal: Evidence of OA. ABDOMEN: Soft, no tenderness, no guarding rigidity, liver spleen not palpable, no masses palpable. PSYCH: Alert and oriented x3; mood and affect normal. INVESTIGATIONS, reviewed in the clinical context: March 06: WBC 8.2 hemoglobin 14.5 platelets 29 potassium 3.9 creatinine 1.01 LDL 189 White count 13.5 hemoglobin 7.4 platelets 431 potassium 4.3 BUN 14 creatinine 0.85 Lactic acid 2.2 calcium 10.6 Troponin I 0.588, 0.4 UA trace protein, trace blood. Coronavirus [PCR]: Not detected EKG tracing personally reviewed by me-shows ST segment depression in lead 1 and aVL V2 through V6. 2-D echocardiogram: Moderate concentric LVH. EF 55-60%. No wall motion abnormality Ultrasound abdomen: Gallstones. Thickened wall gallbladder is contracted. CBD within normal limits. Liver: Increased attenuation the echotexture discourse Assessment and plan: -Choledocholithiasis symptomatic. Questionable associated acute cholecystitis. IV Zosyn-changed to Augmentin. Diet low-fat. Follow Dr. Kwong next Tuesday -Positive troponins, with EKG changes. With changes of ischemia in inferolateral leads. Patient otherwise asymptomatic at baseline and good excise tolerance. 2-D echocardiogram does not have any wall motion abnormalities. For further out patient workup by cardiology. -Hyperlipidemia, Lipitor 40 mg daily -Primary osteoarthritis multiple joints bilaterally. Use Tylenol when necessary -IV heparin monitoring,-discontinued -Hepatic steatosis -Lactic acidosis, type II from fluid loss/dehydration. No sepsis. IV fluids -Hypercalcemia from dehydration set volume loss from vomiting. IV fluids Disposition: Home Plan - Discharge Summary Discharge Rx Participant: Yes New Discharge Prescriptions: New Atorvastatin [Lipitor] 40 mg PO DAILY #30 tab Metoprolol Tartrate [Lopressor] 25 mg PO BID #60 tab Amoxic-Pot Clav 875-125Mg [Augmentin 875-125] 1 tab PO Q12HR 7 Days #14 tab Aspirin 81 mg PO DAILY #30 tab Continue Cholecalciferol [Vitamin D3 (25 Mcg = 1000 Iu)] 25 mcg PO DAILY Ascorbic Acid [Vitamin C] 500 mg PO DAILY Multivitamins, Thera [Multivitamin (formulary)] 1 tab PO DAILY Discharge Medication List Ascorbic Acid [Vitamin C] 500 mg PO DAILY 03/05/21 [History] Cholecalciferol [Vitamin D3 (25 Mcg = 1000 Iu)] 25 mcg PO DAILY 03/05/21 [History] Multivitamins, Thera [Multivitamin (formulary)] 1 tab PO DAILY 03/05/21 [History] Amoxic-Pot Clav 875-125Mg [Augmentin 875-125] 1 tab PO Q12HR 7 Days #14 tab 03/06/21 [Rx] Aspirin 81 mg PO DAILY #30 tab 03/07/21 [Rx] Atorvastatin [Lipitor] 40 mg PO DAILY #30 tab 03/07/21 [Rx] Metoprolol Tartrate [Lopressor] 25 mg PO BID #60 tab 03/07/21 [Rx] Follow up Appointment(s)/Referral(s): Anshul Nayak MD [Primary Care Provider] - 1-2 days (please call office on Tuesday to set up appointment for hospital follow up ) Jakub Kwong MD [STAFF PHYSICIAN] - 03/10/21 Patient Instructions/Handouts: Cholecystitis (GEN) Discharge Disposition: HOME SELF-CARE
== END 2021-03-07 12:58 | disposition home or self-care (01) | DRG 445 ==
LOC: EC 09:46 → 3SCARD 12:45
PROVIDERS: ADMIT Hospitalist; ATTEND Hospitalist
DX: K80.66 Calculus of gallbladder and bile duct with acute and chronic cholecystitis without obstruction (principal); E87.2 Acidosis; E78.5 Hyperlipidemia, unspecified; E83.52 Hypercalcemia; E86.0 Dehydration; K76.0 Fatty (change of) liver, not elsewhere classified; L40.50 Arthropathic psoriasis, unspecified; M19.91 Primary osteoarthritis, unspecified site; Z20.822 Contact with and (suspected) exposure to COVID-19; Z79.899 Other long term (current) drug therapy; Z82.49 Family history of ischemic heart disease and other diseases of the circulatory system; Z83.3 Family history of diabetes mellitus; Z87.11 Personal history of peptic ulcer disease; Z87.891 Personal history of nicotine dependence; R77.8 Other specified abnormalities of plasma proteins
CPT/HCPCS: 36415; 76705; 80048; 80053; 80061; 81001; 83605; 83690; 84484; 85025; 85027; 85730; 87635; 93005; 93306; 96374; 96375; 99285

== ENCOUNTER 2021-03-18 08:33 | Day surgery (SDC) | payer MEDICARE ==
[2021-03-16 08:50] VITALS: BMI 29.0
[~2021-03-18 08:33] MED LIST: ACETAMINOPHEN TAB 500 MG TAB PO PRN; DEXAMETHASONE SOD PHOSPHATE 4 MG/ML 1 ML VIAL IV ONE; HEPARIN SODIUM,PORCINE/PF 5,000 UNIT/0.5 ML SYRINGE SQ PRN; LACTATED RINGERS 1,000 ML IV SCH; LIDOCAINE 1% (10MG/ML) FOR IV START INTRADERMA PRN; ONDANSETRON 4 MG/2 ML VIAL IVP ONE
[2021-03-18] MEDS ORDERED: LACTATED RINGERS 1,000 ML IV ONE ×2 (08:59→11:43)
--- NOTE | 2021-03-18 10:28 | P.GSHP ---
History of Present Illness H&P Date: 03/18/21 Chief Complaint: Right upper quadrant pain This is a 70-year-old female been sedated for laparoscopic cholecystectomy. Patient's has had right upper quadrant pain. Patient's found have cholelithiasis. Past Medical History Past Medical History: Coronary Artery Disease (CAD), Hyperlipidemia Additional Past Medical History / Comment(s): Psoriatic arthritis, granuloma annulares (skin condition), and Behcet's disease. History of Any Multi-Drug Resistant Organisms: None Reported Past Surgical History: Tonsillectomy Additional Past Surgical History / Comment(s): Colonoscopy in May 2017 (next after 3 yrs). Past Anesthesia/Blood Transfusion Reactions: No Reported Reaction Smoking Status: Former smoker - Past Family History Father Family Medical History: Diabetes Mellitus Mother Family Medical History: Cancer, Myocardial Infarction ([place]) Additional Family Medical History / Comment(s): Unknown type of cancer. 2 cousins had breast cancer. Medications and Allergies Home Medications Medication Instructions Recorded Confirmed Type Ascorbic Acid [Vitamin C] 500 mg PO DAILY 03/05/21 03/16/21 History Cholecalciferol [Vitamin D3 (25 25 mcg PO DAILY 03/05/21 03/16/21 History Mcg = 1000 Iu)] Multivitamins, Thera [Multivitamin 1 tab PO DAILY 03/05/21 03/16/21 History (formulary)] Aspirin 81 mg PO DAILY #30 tab 03/07/21 03/16/21 Rx Atorvastatin [Lipitor] 40 mg PO DAILY #30 tab 03/07/21 03/16/21 Rx Metoprolol Tartrate [Lopressor] 25 mg PO BID #60 tab 03/07/21 03/16/21 Rx Allergies Allergy/AdvReac Type Severity Reaction Status Date / Time No Known Allergies Allergy Verified 03/16/21 08:43 Surgical - Exam Vital Signs Temp Pulse Resp BP Pulse Ox 97.4 F L 63 18 157/81 100 03/18/21 08:56 03/18/21 08:56 03/18/21 08:56 03/18/21 08:56 03/18/21 08:56 - General well developed, well nourished, no distress - Eyes PERRL - ENT normal pinna - Neck no masses - Respiratory normal expansion - Cardiovascular Rhythm: regular - Abdomen Abdomen: soft, non tender Assessment and Plan Assessment: Cholelithiasis Right upper quadrant pain We'll perform laparoscopic cholecystectomy.
[2021-03-18] MEDS ORDERED: PROPOFOL 10 MG/ML 20 ML VIAL IV ONE (10:35)
[2021-03-18] MEDS ORDERED: fentaNYL (PF) 50 MCG/ML 2 ML AMP ONE (10:35)
[2021-03-18] MEDS ORDERED: NEOSTIGMINE 1 MG/ML 10 ML VIAL ONE (10:35)
[2021-03-18] MEDS ORDERED: MIDAZOLAM 2 MG/2 ML VIAL ONE (10:35)
[2021-03-18] MEDS ORDERED: LIDOCAINE 1% INJ 10MG/ML (20 ML MDV) ONE (10:35)
[2021-03-18] MEDS ORDERED: GLYCOPYRROLATE 0.2 MG/ML 2 ML VIAL ONE (10:35)
[2021-03-18] MEDS ORDERED: SUCCINYLCHOLINE CHLORIDE 100 MG/5 ML SYR IV ONE (10:35)
[2021-03-18] MEDS ORDERED: BUPIVACAIN-EPI 0.25%-1:200,000 30 ML VIAL SQ ONE (10:39)
[2021-03-18 11:59] VITALS: RESP 16; TEMP 96.8
[2021-03-18] MEDS: HYDROmorphone 0.5 MG/0.5 ML SYRINGE IVP PRN ×2 (12:14→12:44)
[2021-03-18 14:53] VITALS: BP 139/71; PULSE 67
--- NOTE | 2021-04-08 09:35 | P.OP ---
Date of Procedure: 04/17/21 Preoperative Diagnosis: Cholecystitis Postoperative Diagnosis: Cholecystitis Procedure(s) Performed: Laparoscopic cholecystectomy Anesthesia: WOODY Surgeon: Jakub Kwong Estimated Blood Loss (ml): 5 Pathology: other (Gallbladder) Condition: stable Disposition: PACU Description of Procedure: The patient was placed on the operating table. The patient received a general endotracheal tube anesthesia. The patients abdomen was prepped and draped in the usual sterile fashion. Through an infraumbilical stab incision, the fascia of the anterior abdominal wall was grasped with a pair of Kochers and then the Veress needle was placed in the peritoneal cavity. Position of the Veress needle was confirmed with positive drop test. The abdomen was then insufflated. After adequate insufflation, the 10 mm trocar was placed in the peritoneal cavity. Following this the laparoscope was placed in the peritoneal cavity. The patient was placed in the head-up, right side up position and then a 5 mm trocar was placed in the right lateral and right subcostal position under direct visualization. A 8 mm trocar was placed in the epigastric position. The gallbladder was grasped in the fundus and infundibulum. Traction on the gallbladder was placed in the lateral and the cephalad positions. The triangle of Calot was visualized.. The cystic duct was bluntly dissected until the union of the cystic duct and common bile duct was seen. A critical view of safety was achieved. The cystic duct was then divided and sealed with the Harmonic scissors. A PDS Endoloop was then placed throughout the cystic duct stump. The cystic artery divided and sealed with the Harmonic scissors. The gallbladder was then removed from the liver bed using Harmonic scissors. The gallbladder was then extracted through the epigastric port site. Operative field was checked for any bleeding spots and Harmonic scissors was used to coagulate the liver bed. The abdomen was irrigated. The trocars were removed. The skin was closed using interrupted 3-0 Vicryl suture. Dermabond dressing were applied. The patient tolerated the procedure well.
== END 2021-03-18 15:26 | disposition home or self-care (01) ==
LOC: OR 08:33
PROVIDERS: ATTEND Surgery
DX: K80.10 Calculus of gallbladder with chronic cholecystitis without obstruction (principal); I25.10 Atherosclerotic heart disease of native coronary artery without angina pectoris; E78.5 Hyperlipidemia, unspecified; L40.50 Arthropathic psoriasis, unspecified; I10 Essential (primary) hypertension; L92.0 Granuloma annulare; M35.2 Behcet's disease; Z98.890 Other specified postprocedural states; Z87.891 Personal history of nicotine dependence; Z82.49 Family history of ischemic heart disease and other diseases of the circulatory system; Z83.3 Family history of diabetes mellitus; Z80.3 Family history of malignant neoplasm of breast; Z79.82 Long term (current) use of aspirin; Z79.899 Other long term (current) drug therapy
CPT/HCPCS: 88304; 88300; 47562; J2250; J1100; J2710; J0690; J2405; J2001; J3010; J0330; J2704; J1170; J1644

== ENCOUNTER 2022-05-02 06:45 | Emergency (ER) | payer MEDICARE ==
[2022-05-02 06:49] VITALS: BP 143/83; PULSE 62; RESP 18; TEMP 98
--- NOTE | 2022-05-02 07:05 | ED ---
Lower Extremity Injury HPI - General Chief Complaint: Extremity Injury, Lower Stated Complaint: Fall, LT leg injury Time Seen by Provider: 05/02/22 06:50 Source: patient, family, RN notes reviewed Mode of arrival: wheelchair Limitations: no limitations - History of Present Illness Initial Comments: Patient is a 71-year-old female presenting to the emergency room from home for left knee and ankle pain after slipping on ice yesterday causing her to fall onto her left side. She reports twisting her ankle and knee as she fell. She denies any pain in her hip, head trauma, dizziness, loss of consciousness or injury to any other extremity besides her left. She is complaining of pain and swelling to both her left knee and ankle with decreased range of motion to her left knee. She has full though painful range of motion to her left ankle. She denies previous injuries to her ankle or knee. She has a past medical history significant for hypertension, hyperlipidemia and gastric ulcers. - Related Data Home Medications Medication Instructions Recorded Confirmed Ascorbic Acid [Vitamin C] 500 mg PO DAILY 03/05/21 09/21/21 Cholecalciferol [Vitamin D3 (25 25 mcg PO DAILY 03/05/21 09/21/21 Mcg = 1000 Iu)] Multivitamins, Thera [Multivitamin 1 tab PO DAILY 03/05/21 09/21/21 (formulary)] Previous Rx's Medication Instructions Recorded Aspirin 81 mg PO DAILY #30 tab 03/07/21 Atorvastatin [Lipitor] 40 mg PO DAILY #30 tab 03/07/21 Metoprolol Tartrate [Lopressor] 25 mg PO BID #60 tab 03/07/21 Docusate [Colace] 100 mg PO BID #20 capsule 03/18/21 Allergies Allergy/AdvReac Type Severity Reaction Status Date / Time No Known Allergies Allergy Verified 05/02/22 06:49 Review of Systems ROS Statement: Those systems with pertinent positive or pertinent negative responses have been documented in the HPI. ROS Other: All systems not noted in ROS Statement are negative. Past Medical History Past Medical History: Hyperlipidemia, Hypertension Additional Past Medical History / Comment(s): hx ulcers, History of Any Multi-Drug Resistant Organisms: None Reported Past Surgical History: Cholecystectomy, Tonsillectomy Additional Past Surgical History / Comment(s): Colonoscopy Past Anesthesia/Blood Transfusion Reactions: No Reported Reaction Past Psychological History: No Psychological Hx Reported Smoking Status: Former smoker Past Alcohol Use History: None Reported Past Drug Use History: None Reported - Past Family History Father Family Medical History: Diabetes Mellitus Mother Family Medical History: Myocardial Infarction ([place]) Additional Family Medical History / Comment(s): . General Exam Limitations: no limitations General appearance: alert, in no apparent distress Head exam: Present: atraumatic, normocephalic, normal inspection Eye exam: Present: normal appearance, PERRL, EOMI. Absent: scleral icterus, conjunctival injection, periorbital swelling ENT exam: Present: normal exam, mucous membranes moist Neck exam: Present: normal inspection, full ROM Respiratory exam: Absent: respiratory distress, accessory muscle use Cardiovascular Exam: Present: regular rate GI/Abdominal exam: Absent: distended Left Knee exam: Present: tenderness, swelling, ecchymosis, effusion. Absent: full ROM, full knee extension Ankle exam: Present: full ROM, tenderness, swelling Foot/Toe exam: Present: full ROM, swelling (mid foot). Absent: tenderness Neurovascular tendon exam: Present: no vascular compromise Gait: observed and limited by pain Back exam: Present: normal inspection Neurological exam: Present: alert, oriented X3, CN II-XII intact Psychiatric exam: Present: normal affect, normal mood Skin exam: Present: warm, dry, intact, normal color. Absent: rash Course Vital Signs 05/02/22 06:47 Temperature 98 F Pulse Rate 62 Respiratory 18 Rate Blood Pressure 143/83 O2 Sat by Pulse 99 Oximetry Medical Decision Making - Medical Decision Making Was pt. sent in by a medical professional or institution? @ -No Did you speak to anyone other than the patient for history? @ -Spouse Did you review nursing and triage notes? @ -Yes and agree Were old charts reviewed? @ - No Differential Diagnosis? @ - Differential lower extremity pain: Fracture, dislocation, sprain, tendonitis, torn ligaments, this is not meant to be an all-inclusive list. EKG interpreted by me (3pts min.)? @ -none X-rays interpreted by me (1pt min.)? @ -X-rays interpreted by me include left knee which demonstrates no fracture or dislocation however significant swelling is noted. Left ankle no fracture or dislocation, tissue swelling noted. Left foot with heel spur no fracture or dislocation. No swelling. Radiologist's report also reviewed CT interpreted by me (1pt min.)? @ -none U/S interpreted by me (1pt. min.)? @ -none What testing was considered but not performed? (CT, X-rays, U/S, labs)? Why? @ None What meds were considered but not given? Why? @ -Analgesics for pain offered but declined Did you discuss the management of the patient with other professionals? @ -No Did you reconcile home meds? @ -Reviewed but not reconciled Was smoking cessation discussed for >3mins.? @ -none Was critical care preformed (if so, how long)? @ -none Were there social determinants of health that impacted care today? How? (Homelessness, low income, unemployed, alcoholism, drug addiction, transportation, low edu. Level, literacy, decrease access to med. care, usp, rehab)? @ -No Was there de-escalation of care discussed even if they declined? (Discuss DNR or withdrawal of care, Hospice)? @ -No What co-morbidities impacted this encounter? (DM, HTN, Smoking, COPD, CAD, Cancer, CVA, Hep., AIDS, mental health diagnosis, sleep apnea, morbid obesity)? @ -None Was patient admitted / discharged? @ -Slip and fall on ice yesterday with left lower extremity pain since all. No head trauma or loss of consciousness. Will obtain x-ray of left knee ankle and foot to evaluate for injury. No indication for diagnostic imaging. Analgesics offered but declined. X-ray show fractures or dislocation significant swelling is noted and cannot rule out injury to the knee. No indication for further diagnostic imaging or laboratory studies at this time will place knee and an immobilizer and have her follow-up with orthopedic provider. Return parameters to the emergency room reviewed. Encouraged rest, ice, elevation, immobilizer use along with [id number] ibuprofen or Tylenol as needed for pain. Weightbearing as tolerated advised. Will discharge home in stable condition with immobilizer intact to her left knee. Undiagnosed new problem with uncertain prognosis? @ -none Drug Therapy requiring intensive monitoring for toxicity (Heparin, Nitro, In sulin, Cardizem)? @ -none Were any procedures done? @ -none Diagnosis/symptom? @ -Left knee effusion with pain Acute, or Chronic, or Acute on Chronic? @ -Acute Uncomplicated (without systemic symptoms) or Complicated (systemic symptoms)? @ -Uncomplicated Side effects of treatment? @ -none Exacerbation, Progression, or Severe Exacerbation] @ -no Poses a threat to life or bodily function? @ -no Diagnosis/symptom? @ -Left ankle sprain Acute, or Chronic, or Acute on Chronic? @ -Acute Uncomplicated (without systemic symptoms) or Complicated (systemic symptoms)? @ -Uncomplicated Side effects of treatment? @ -None Exacerbation, Progression, or Severe Exacerbation] @ -No Poses a threat to life or bodily function? @ -No Case discussed with Dr. Christensen. - Radiology Data Radiology results: report reviewed, image reviewed Disposition Clinical Impression: Knee pain, left, Fall, Left ankle sprain Disposition: HOME SELF-CARE Condition: Stable Instructions (If sedation given, give patient instructions): Ankle Sprain (ED), Knee Pain (ED) Additional Instructions: Please maintain use of knee immobilizer, may bear weight as tolerated. Rest, elevation and ice encouraged. Please utilize ibuprofen or Tylenol [id number] for pain. Please follow-up with orthopedist for further evaluation and treatment. Please return to the Emergency Department if symptoms worsen or any other concerns. Is patient prescribed a controlled substance at d/c from ED?: No Referrals: Anshul Nayak MD [Primary Care Provider] - 1-2 days Debbie Peña DO [Doctor of Osteopathic Medicine] - 1-2 days Time of Disposition: 08:39
--- NOTE | 2022-05-02 07:53 | XR ---
EXAMINATION TYPE: XR knee complete 3 views LT, XR foot complete 3 views LT, XR ankle complete 3 views LT DATE OF EXAM: 05/02/2022 COMPARISON: None HISTORY: 71-year-old female fall, pain, and swelling FINDINGS: Left knee: Moderate degenerative joint space narrowing lateral compartment or tricompartmental degenerative spur ring is present. There is a moderate suprapatellar joint effusion. Mild anterior soft tissue swelling . No acute fracture, subluxation or dislocation is seen. Ankle: Circumferential soft tissue swelling. No acute fracture, subluxation, or dislocation. Subtalar joint is aligned. Smooth delineation to the Achilles tendon. Foot: Moderate-sized plantar spur. Dorsal degenerative spurring. Mild degenerative change first MTP joint. Morrison's toe. No acute fracture, subluxation, or dislocation is seen. IMPRESSION: 1. Left knee: Tricompartmental OA, greatest in the lateral compartment. There is a moderate joint eff usion suggested. No acute osseous abnormality seen. Given the joint effusion, consider MRI if concern for internal derangement or occult injury. 2. Left ankle: Circumferential soft tissue swelling. No acute osseous abnormality seen. 3. Left foot: Plantar heel spur. No acute osseous abnormality seen.
== END 2022-05-02 08:40 | disposition home or self-care (01) ==
LOC: EC 06:45
DX: S93.402A Sprain of unspecified ligament of left ankle, initial encounter (principal); M25.562 Pain in left knee; I10 Essential (primary) hypertension; Z90.49 Acquired absence of other specified parts of digestive tract; Z90.89 Acquired absence of other organs; Z87.891 Personal history of nicotine dependence; W00.0XXA Fall on same level due to ice and snow, initial encounter; Y92.009 Unspecified place in unspecified non-institutional (private) residence as the place of occurrence of the external cause
CPT/HCPCS: 99283 ×2; 73562; 73610; 73630; L1830

== ENCOUNTER → 2023-09-01 | Outpatient (CLI) | payer MEDICARE ==
[2023-09-01 08:41] VITALS: BP 153/84; PULSE 51; RESP 16; TEMP 97.7
--- NOTE | 2023-09-01 12:16 | MM ---
Risk Values: Susie 5 year model risk: 1.3%. NCI Lifetime model risk: 3.3%. Findings: Upon attempting to do the stereotactic core biopsy it appears that the lesion may actually be looping vessels when reviewed with Dr. Huff. We have therefore recommended a 6-month follow-up mammogram be done and she will be seen at that time. If she notes anything of concern she will call us sooner. Management: Diagnostic Mammogram of the left breast in 6 months. Electronically signed and approved by: Brianda Mcgee M.D.
== END ==
LOC: WWCWWP 07:51
PROVIDERS: ATTEND Surgery
DX: R92.8 Other abnormal and inconclusive findings on diagnostic imaging of breast (principal); L98.8 Other specified disorders of the skin and subcutaneous tissue

== ENCOUNTER → 2023-09-01 | Day surgery (SDC) | payer MEDICARE ==
[~2023-09-01] MED LIST changes: -ACETAMINOPHEN TAB 500 MG TAB PO PRN; +ALPRAZolam 0.25 MG TAB PO PRN; -DEXAMETHASONE SOD PHOSPHATE 4 MG/ML 1 ML VIAL IV ONE; -HEPARIN SODIUM,PORCINE/PF 5,000 UNIT/0.5 ML SYRINGE SQ PRN; -LACTATED RINGERS 1,000 ML IV SCH; -LIDOCAINE 1% (10MG/ML) FOR IV START INTRADERMA PRN; -ONDANSETRON 4 MG/2 ML VIAL IVP ONE
--- NOTE | 2023-09-01 08:27 | P.GSCN ---
History of Present Illness Consult date: 09/01/23 Reason for Consult: abnormal left breast mammogram Requesting physician: Anshul Nayak History of present illness: Brittany is a 73 year old female seen for Dr Nayak status post a left breast mammogram on 08-19-23, which showed a density in the left breast. An untrasound was done on the same date which did not show any lesion of concern in the left breast. A stero-biopsy was recommended. She is not complaining of any new lumps masses or nodules of concern in either breast. She has not had any recent trauma or infection in the breast. She is not complaining of any nipple discharge or skin changes. She has never had any surgery on her breast. Nothing was reported in the right breast. A screening mammogram was performed on 08-01-2023 this was BI-RADS 0 and additional views of the left breast were recommended. No lesions of concern were noted in the right breast. Caffeine: 5 cups coffee/day nicotine: stopped about 10 years ago, used to smoke 1/2 PPD for 4 years, smoked 2 PPD stopped also chocolate: weekly BCP: 3 years Family History: cousin ? type Hormonal History: menarche: 14 M1, breast fed: no, age at first : 19 menopause: 51 Surgical History: tonsil gallbladder ? Medical History: HTN high lipids Social History: nicotine: none alcohol: none drugs: none Review of Systems - Constitutional Denies fever, Denies weight loss - EENT Eyes: denies blurred vision Ears: deny: decreased hearing, tinnitus Ears, nose, mouth and throat: Denies dysphagia - Breasts bilateral: as per HPI - Cardiovascular Denies chest pain, Denies shortness of breath - Respiratory Denies cough, Denies 7 - Gastrointestinal Gastrointestinal Comment(s): PUD in past - Genitourinary Genitourinary: Denies dysuria, Denies hematuria Menstruation: Reports postmenopausal - Musculoskeletal Reports as per HPI - Integumentary Denies rash, Denies unusual bruising - Neurological Denies headaches, Denies syncope - Psychiatric Reports anxiety, Reports depression - Endocrine Reports as per HPI - Hematologic/Lymphatic Reports as per HPI - Allergic/Immunologic Reports as per HPI Past Medical History Past Medical History: Hyperlipidemia, Hypertension Additional Past Medical History / Comment(s): hx ulcers, History of Any Multi-Drug Resistant Organisms: None Reported Past Surgical History: Cholecystectomy, Tonsillectomy Additional Past Surgical History / Comment(s): Colonoscopy Past Anesthesia/Blood Transfusion Reactions: No Reported Reaction Past Psychological History: No Psychological Hx Reported Smoking Status: Former smoker Past Alcohol Use History: None Reported Additional Past Alcohol Use History / Comment(s): quit smoking 30 yrs ago Past Drug Use History: None Reported - Past Family History Father Family Medical History: Diabetes Mellitus Mother Family Medical History: Myocardial Infarction ([place]) Additional Family Medical History / Comment(s): . Medications and Allergies Home Medications Medication Instructions Recorded Confirmed Type Ascorbic Acid [Vitamin C] 500 mg PO DAILY 03/05/21 09/01/23 History Cholecalciferol [Vitamin D3 (25 50 mcg PO DAILY 03/05/21 09/01/23 History Mcg = 1000 Iu)] Multivitamins, Thera [Multivitamin 1 tab PO DAILY 03/05/21 09/01/23 History (formulary)] Aspirin 81 mg PO DAILY #30 tab 03/07/21 09/01/23 Rx Atorvastatin [Lipitor] 40 mg PO DAILY #30 tab 03/07/21 09/01/23 Rx Metoprolol Tartrate [Lopressor] 25 mg PO BID #60 tab 03/07/21 09/01/23 Rx Celecoxib [CeleBREX] 200 mg PO DAILY 08/24/23 09/01/23 History Magnesium 200 mg PO DAILY 08/24/23 09/01/23 History Allergies Allergy/AdvReac Type Severity Reaction Status Date / Time No Known Allergies Allergy Verified 09/01/23 08:03 Surgical - Exam - General no distress - Eyes normal ocular movement - ENT no hearing loss - Neck trachea midline - Respiratory normal respiratory effort, clear to auscultation - Cardiovascular Rhythm: regular Heart Sounds: normal: S1, S2 - Abdomen Abdomen: soft, non tender, no guarding, no rigid, no rebound - Integumentary normal turgor - Neurologic no disoriented, no combative - Musculoskeletal normal gait - Psychiatric oriented to time, oriented to person, oriented to place, speech is normal, memory intact Breast Exam: BRA: 38C Inspection: Bilateral grade 3 ptosis Palpation: Right breast: Multi positional exam no dominant masses or nodules of concern, fiborcystic changes Right axilla: No adenopathy of concern Left breast: Multi positional exam fibrocystic changes no dominant masses or nodules of concern Left axilla: No adenopathy of concern Right breast larger than left breast Results Nodular density left breast Plan: Left breast stereotactic core biopsy Risk and benefits of procedure discussed with the patient. Risk include but are not limited to bleeding, infection, reaction to the anesthetic. If the lesion cannot be seen the procedure will be terminated. The pathology will be reviewed and if this is discordant then further tissue acquisition may be necessary. The patient understands and wishes to proceed. Assessment and Plan Assessment: Impression: abnormal left bresat mammogram Plan: Left breast stereotactic core biopsy Risk and benefits of procedure discussed with the patient. Risk include but are not limited to bleeding, infection, reaction to the anesthetic. If the lesion cannot be seen the procedure will be terminated. The pathology will be reviewed and if this is discordant then further tissue acquisition may be necessary. The patient understands and wishes to proceed. CC: Dr. Nayak
== END ==
LOC: RADMAMWWP 06:50
PROVIDERS: ATTEND Surgery
DX: R92.8 Other abnormal and inconclusive findings on diagnostic imaging of breast (principal); E78.5 Hyperlipidemia, unspecified; I10 Essential (primary) hypertension; Z87.891 Personal history of nicotine dependence; Z79.1 Long term (current) use of non-steroidal anti-inflammatories (NSAID); Z90.49 Acquired absence of other specified parts of digestive tract

== ENCOUNTER → 2024-03-05 | Outpatient (CLI) | payer MEDICARE ==
--- NOTE | 2024-03-05 11:04 | MM ---
Reason for Exam: Follow-up at short interval from prior study. Last screening mammogram was performed 6 month(s) ago. Patient History: Menarche at age 13. First Full-Term at age 19. Postmenopausal. 09/01/2023, MG discontinued stereo core LT on the left side. Maternal cousin had breast cancer, age 30. Risk Values: Susie 5 year model risk: 1.3%. NCI Lifetime model risk: 3.3%. Prior Study Comparison: 06/16/2000 Bilateral Screening Mammogram, [facility]. 12/15/2015 Bilateral Screening Mammogram, [facility]. 06/21/2017 Bilateral Screening Mammogram, [facility]. 10/18/2018 Bilateral Screening Mammogram, [facility]. 07/22/2020 Bilateral Screening Mammogram, [facility]. 08/01/2023 Bilateral MG 3D screening mammo w/cad, Unknown. 08/19/2023 Bilateral MG 3D screening mammo w/cad, Unknown. Tissue Density: There are scattered areas of fibroglandular density. Findings: Analyzed By CAD. The previous asymmetric density central posterior left cc view are no longer demonstrated. There is a subtle 5 mm circumscribed low-density nodule lateral right CC view middle depth. This becomes less defined on additional views. A tiny cyst is suspected. Six-month follow-up recommended. Otherwise, no significant change. Overall Assessment: Probably benign, BI-RAD 3 Management: Diagnostic Mammogram of the right breast in 6 months. Results were given to the patient verbally at the time of exam. Patient should continue monthly self-breast exams. A clinical breast exam by your physician is recommended on an annual basis. This exam should not preclude additional follow-up of suspicious palpable abnormalities. Note on Susie scores and lifetime risk: 1. A Ssuie score greater than 3% is considered moderate risk. If this is the case, consider specialist referral to assess eligibility for a risk reducing agent. 2. If overall lifetime risk for the development of breast cancer is 20% or higher, the patient may qualify for future screening with alternating mammogram and breast MRI. [facility], , 03/05/2024 10:59 AM. Electronically signed and approved by: Kaela Reece M.D. Radiologist
== END | disposition home or self-care (01) ==
LOC: RADMAMWWP 10:02
PROVIDERS: ATTEND Surgery
CPT/HCPCS: 77062; 77066

== ENCOUNTER → 2024-09-04 | Outpatient (CLI) | payer MEDICARE ==
--- NOTE | 2024-09-04 08:48 | MM ---
Reason for Exam: Follow-up at short interval from prior study. Last screening mammogram was performed 6 month(s) ago. Patient History: Menarche at age 13. First Full-Term at age 19. Postmenopausal. 09/01/2023, MG discontinued stereo core LT on the left side. Maternal cousin had breast cancer, age 30. Risk Values: Susie 5 year model risk: 1.3%. NCI Lifetime model risk: 3.1%. Prior Study Comparison: 08/01/2023 Bilateral MG 3D screening mammo w/cad, Unknown. 08/19/2023 Bilateral MG 3D screening mammo w/cad, Unknown. 03/05/2024 Bilateral MG 3D diag mammo w/cad [facility], [facility]. Tissue Density: Right: There are scattered areas of fibroglandular density. Findings: Stable focal 6 mm asymmetric prominent soft tissue middle depth outer aspect right breast. No new focal lesion or worrisome cluster of microcalcification in the right breast. Overall Assessment: Benign, BI-RAD 2 Management: Screening Mammogram of both breasts in 6 months. Return to routine follow-up. Results were given to the patient verbally at the time of exam. Patient should continue monthly self-breast exams. A clinical breast exam by your physician is recommended on an annual basis. This exam should not preclude additional follow-up of suspicious palpable abnormalities. Note on Susie scores and lifetime risk: 1. A Susie score greater than 3% is considered moderate risk. If this is the case, consider specialist referral to assess eligibility for a risk reducing agent. 2. If overall lifetime risk for the development of breast cancer is 20% or higher, the patient may qualify for future screening with alternating mammogram and breast MRI. [facility], , 09/04/2024 8:45 AM. Electronically signed and approved by: Sarath Delatorre M.D.
== END | disposition home or self-care (01) ==
LOC: RADMAMWWP 08:17
PROVIDERS: ATTEND Internal Medicine
DX: R92.8 Other abnormal and inconclusive findings on diagnostic imaging of breast (principal); R92.321 Mammographic fibroglandular density, right breast; Z78.0 Asymptomatic menopausal state; Z80.3 Family history of malignant neoplasm of breast
CPT/HCPCS: 77061; 77065

== ENCOUNTER → 2024-09-07 | Outpatient (CLI) | payer MEDICARE ==
[2024-09-07 11:24] VITALS: BP 147/71; PULSE 45; RESP 17; TEMP 97.8
--- NOTE | 2024-09-07 11:33 | P.PN ---
Subjective Progress Note Date: 09/07/24 Principal diagnosis: fibrocystic breast changes History of Present Illness Consult date: 09/01/23 Reason for Consult: abnormal left breast mammogram Requesting physician: Anshul Nayak History of present illness: Brittany is a 73 year old female seen for Dr Nayak status post a left breast mammogram on 08-19-23, which showed a density in the left breast. An untrasound was done on the same date which did not show any lesion of concern in the left breast. A stero-biopsy was recommended. She is not complaining of any new lumps masses or nodules of concern in either breast. She has not had any recent trauma or infection in the breast. She is not complaining of any nipple discharge or skin changes. She has never had any surgery on her breast. Nothing was reported in the right breast. A screening mammogram was performed on 08-01-2023 this was BI-RADS 0 and additional views of the left breast were recommended. No lesions of concern were noted in the right breast. Upon attempting to do the stereotactic core biopsy it appears that the lesion may actually be looping vessels when reviewed with Dr. Huff. We have therefore recommended a 6-month follow-up mammogram be done and she will be seen at that time. If she notes anything of concern she will call us sooner. She had a bilateral mammogram on 03-05-24 which did not show any lesion in the left breast but a right breast mammogram showed a 5 mm questionable nodule and repeat right breast mammogram in 6 months recommended. This was done on 09-04-24 and this was BIRAD 2 and repeat mammogram bilateral in 6 months. She is not complaining of any new lumps, masses, or nodules in her breast. No nipple discharge or skin changes. She fell several weeks ago and has pain in her right shoulder, she chipped her bone. She is wearing a sling. Caffeine: 5 cups coffee/day nicotine: stopped about 10 years ago, used to smoke 1/2 PPD for 4 years, smoked 2 PPD stopped also chocolate: weekly BCP: 3 years Family History: cousin ? type Hormonal History: menarche: 14 M1, breast fed: no, age at first : 19 menopause: 51 Surgical History: tonsil gallbladder ? Medical History: HTN high lipids Social History: nicotine: none alcohol: none drugs: none Review of Systems - Constitutional Denies fever, Denies weight loss - EENT Eyes: denies blurred vision Ears: deny: decreased hearing, tinnitus Ears, nose, mouth and throat: Denies dysphagia - Breasts bilateral: as per HPI - Cardiovascular Denies chest pain, Denies shortness of breath - Respiratory Denies cough - Gastrointestinal Gastrointestinal Comment(s): PUD in past - Genitourinary Genitourinary: Denies dysuria, Denies hematuria Menstruation: Reports postmenopausal - Musculoskeletal Reports as per HPI - Integumentary Denies rash, Denies unusual bruising - Neurological Denies headaches, Denies syncope - Psychiatric Reports anxiety, Reports depression - Endocrine Reports as per HPI - Hematologic/Lymphatic Reports as per HPI - Allergic/Immunologic Reports as per HPI Past Medical History Past Medical History: Hyperlipidemia, Hypertension Additional Past Medical History / Comment(s): hx ulcers, History of Any Multi-Drug Resistant Organisms: None Reported Past Surgical History: Cholecystectomy, Tonsillectomy Additional Past Surgical History / Comment(s): Colonoscopy Past Anesthesia/Blood Transfusion Reactions: No Reported Reaction Past Psychological History: No Psychological Hx Reported Smoking Status: Former smoker Past Alcohol Use History: None Reported Additional Past Alcohol Use History / Comment(s): quit smoking 30 yrs ago Past Drug Use History: None Reported - Past Family History Father Family Medical History: Diabetes Mellitus Mother Family Medical History: Myocardial Infarction ([place]) Additional Family Medical History / Comment(s): . Medications and Allergies Home Medications Medication Instructions Recorded Confirmed Type Ascorbic Acid [Vitamin C] 500 mg PO DAILY 03/05/21 09/01/23 History Cholecalciferol [Vitamin D3 (25 50 mcg PO DAILY 03/05/21 09/01/23 History Mcg = 1000 Iu)] Multivitamins, Thera [Multivitamin 1 tab PO DAILY 03/05/21 09/01/23 History (formulary)] Aspirin 81 mg PO DAILY #30 tab 03/07/21 09/01/23 Rx Atorvastatin [Lipitor] 40 mg PO DAILY #30 tab 03/07/21 09/01/23 Rx Metoprolol Tartrate [Lopressor] 25 mg PO BID #60 tab 03/07/21 09/01/23 Rx Celecoxib [CeleBREX] 200 mg PO DAILY 08/24/23 09/01/23 History Magnesium 200 mg PO DAILY 08/24/23 09/01/23 History Allergies Allergy/AdvReac Type Severity Reaction Status Date / Time No Known Allergies Allergy Verified 09/01/23 08:03 Objective - Vital Signs Vital signs: Intake & Output 09/06/24 09/07/24 09/07/24 18:59 06:59 18:59 Weight 81.647 kg - Constitutional General appearance: Present: cooperative - EENT Eyes: Present: EOMI ENT: Present: hearing grossly normal - Neck Neck: Present: normal ROM - Respiratory Respiratory: bilateral: CTA - Cardiovascular Rhythm: regular Heart sounds: normal: S1, S2 - Integumentary Integumentary: Present: normal turgor - Musculoskeletal Musculoskeletal: Present: gait normal - Psychiatric Psychiatric: Present: A&O x's 3, appropriate affect, intact judgment & insight - Additional findings Additional findings: Breast Exam: BRA: 38C Inspection: Bilateral grade 3 ptosis Palpation: Right breast: Multi positional exam no dominant masses or nodules of concern, fiborcystic changes Right axilla: No adenopathy of concern Left breast: Multi positional exam fibrocystic changes no dominant masses or nodules of concern Left axilla: No adenopathy of concern Right breast larger than left breast Assessment and Plan Assessment: Impression: Fibrocystic breast changes Plan: Bilateral mammogram and right breast ultrasound in 6 months with examination at that time CC: Dr. Nayak
== END ==
LOC: WWCWWP 09:36
PROVIDERS: ATTEND Surgery
DX: N60.19 Diffuse cystic mastopathy of unspecified breast (principal); R92.8 Other abnormal and inconclusive findings on diagnostic imaging of breast

== ENCOUNTER → 2024-11-13 | Outpatient (CLI) | payer MEDICARE ==
[2024-11-13 20:15] LABS: T4, Free (Free Thyroxine) 1.06 ng/dL (0.80-1.80); Vitamin B12 637.0 pg/mL (200.0-944.0)
== END | disposition home or self-care (01) ==
LOC: LABWHC1 12:58
PROVIDERS: ATTEND Psychiatry & Neurology Neurology
DX: G30.9 Alzheimer's disease, unspecified (principal); R41.3 Other amnesia
CPT/HCPCS: 36415; 82607; 83090; 84207; 84425; 84439; 84443

== ENCOUNTER → 2024-11-28 | Outpatient (CLI) | payer MEDICARE ==
--- NOTE | 2024-11-28 18:35 | MR ---
INDICATION: Patient age:Female; 74 years old; Reason for study: I63.9 CEREBRAL INFARCTION, UNSPECIFIED; PHH. COMPARISON: None. TECHNIQUE: Multi planar, multi sequence imaging was performed through the brain without intravenous c ontrast. FINDINGS: The coffman-white junctions, ventricular system, basal cisterns appear unremarkable. Age-appropriate mil d cerebral volume loss. Diffusion-weighted imaging shows no evidence of restricted diffusion to sugge st acute/subacute infarct. Intracranial arterial flow voids are maintained. Midline structures show n o abnormality. Patchy areas of high T2/FLAIR signal intensity are seen within the periventricular and subcortical white matter. Largest lesion is within the left posterior frontal periventricular white matter measuring up to 1.1 cm (series 601, image 21). The susceptibility weighted images do not revea l any evidence for micro-hemorrhage. The bone marrow signal is within normal limits. The globes are unremarkable. Left inferior maxillary sinus 1.3 cm T2 hyperintense mucous retention cyst. The remaining paranasal sinuses are clear. IMPRESSION: 1. No evidence of intracranial mass or acute/subacute infarct. 2. Nonspecific mild white matter changes, likely related to small vessel ischemic disease. [facility], , 11/28/2024 6:33 PM
== END | disposition home or self-care (01) ==
LOC: RADMRIMAIN 17:51
PROVIDERS: ATTEND Psychiatry & Neurology Neurology
DX: I63.9 Cerebral infarction, unspecified (principal); R90.82 White matter disease, unspecified
CPT/HCPCS: 70551